=== PATIENT | male | born 1965 | race Caucasian/White ===

== ENCOUNTER 2023-02-13 12:37 | Emergency (ER) | payer MEDICARE, MEDICAID, SELFPAY ==
[2023-02-13 12:44] VITALS: BP 130/78; PULSE 89; RESP 18; TEMP 36.4; O2SAT 89; BMI 35.9
[2023-02-13 12:59] VITALS: O2SAT 89
[2023-02-13 13:00] VITALS: PULSE 82
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
[2023-02-13] MEDS: CEPHALEXIN 500 MG CAPSULE PO (14:22)
--- NOTE | 2023-02-13 14:25 | PC.NURSE ---
Pt taking self to [facility]. 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
--- NOTE | 2023-02-13 14:32 | PC.NURSE ---
Called and gave report to Bart Campbell [employer] [facility] Dave
== END 2023-02-13 14:33 | disposition short-term general hospital (02) ==
PROVIDERS: Emergency Provider Emergency Medicine; PCP Nurse Practitioner Family
DX: T20.00XA Burn of unspecified degree of head, face, and neck, unspecified site, initial encounter (principal); L03.211 Cellulitis of face; Z99.81 Dependence on supplemental oxygen; X08.8XXA Exposure to other specified smoke, fire and flames, initial encounter; F17.210 Nicotine dependence, cigarettes, uncomplicated; Z79.899 Other long term (current) drug therapy
CPT/HCPCS: 99283

== ENCOUNTER 2023-10-20 13:17 | Outpatient (OUT) | payer OTHER, SELFPAY ==
--- NOTE | 2023-10-20 14:21 | PM.CN ---
Consult Note: HPI Data of Consult Patient: new to practice Consult date: 10/20/23 Requesting Physician: Sasha Greene MD Primary Care Provider: SHAREE CRESPO Consult Narrative Reason for consult: low back, bilateral hip pain Narrative: 58yom who presents for evaluation. Longstanding low back and bilateral hip pain >5 years. Has previously undergone lumbar RFAs yearly, which have provided significant relief of >50% for >6 months. Last completed in 2021. Had to change pain clinics because previous doctor left practice. Has continued in > 6 week course of provider directed home exercises, with minimal benefit. Imaging shows facet arthropathy in lower lumbar spine. Uses gabapentin and mobic, which provide some relief. Denies adverse med side effects. cc:: CC: Sasha Greene MD Review of Systems ROS Status of ROS 10 or more systems reviewed and unremarkable except as noted in history and below [facility] Medical History On home O2 ?Z99.81 - Dependence on supplemental oxygen (ICD-10) COPD (chronic obstructive pulmonary disease) ?J44.9 - Chronic obstructive pulmonary disease, unspecified (ICD-10) Social History Smoking status: Current every day smoker Meds Home Medications and Allergies Home Medications Medication Instructions Recorded Confirmed Type albuterol sulfate 2.5 mg/3 mL 2.5 mg inhalation Q8H 02/13/23 02/13/23 History (0.083 %) solution for nebulization fluticasone fur. 100 mcg-umeclid 1 inh inhalation Q24H 02/13/23 02/13/23 History 62.5 mcg-vilant 25 mcg inhalat.powder (Trelegy Ellipta) gabapentin 800 mg tablet 800 mg PO TID 02/13/23 02/13/23 History hydrochlorothiazide 25 mg tablet 25 mg PO QDAY 02/13/23 02/13/23 History lisinopril 10 mg tablet 10 mg PO QDAY 02/13/23 02/13/23 History meloxicam 15 mg tablet 15 mg PO QDAY 02/13/23 02/13/23 History Allergies Allergy/AdvReac Type Severity Reaction Status Date / Time No Known Drug Allergies Allergy Verified 02/13/23 12:43 Exam Narrative Exam Narrative: Psych-alert and oriented x 3. Attentive and appropriate, constitutionally normal, displays normal mood and affect per situation.? There are no obvious deficits in memory, reasoning, or intellect.? Skin-no obvious rashes, bruising, erythema noted to the patient's area of pain. Extremities- extremities are warm with minimal edema and palpable pulses. Lumbar-no significant tenderness to palpation noted in the lumbar spine and paraspinal musculature.? Pain is elicited with extension, and lateral rotation of the lumbar spine. Range of motion is slightly diminished with these motions due to pain. Facet loading maneuvers are positive bilaterally and do appear to be concordant with the patient's normal complaints of pain.? Coordination remains intact.? Gait remains non-antalgic. Assessment and Plan Assessment and Plan (1) Lumbar spondylosis: Plan 58yom who presents for evaluation. Failed conservative measures, as noted. Given symptoms and imaging, coupled with previous relief, prudent to repeat bilateral L4-5, L5-S1 radiofrequency ablation under fluoroscopic guidance. He is in agreement. Discussed that will likely need to update lumbar MRI at some point in the future. Meds reviewed, no changes at this time. Follow up after procedure.
== END 2023-10-20 13:18 | disposition home or self-care (01) ==
PROVIDERS: PCP Nurse Practitioner Family; Visit Provider Anesthesiology
DX: M47.816 Spondylosis without myelopathy or radiculopathy, lumbar region (principal); F17.210 Nicotine dependence, cigarettes, uncomplicated; J43.2 Centrilobular emphysema; R91.8 Other nonspecific abnormal finding of lung field; I70.90 Unspecified atherosclerosis; K76.0 Fatty (change of) liver, not elsewhere classified; M48.56XA Collapsed vertebra, not elsewhere classified, lumbar region, initial encounter for fracture
CPT/HCPCS: 71271; G0463

== ENCOUNTER 2023-10-20 15:15 | Outpatient (OUT) | payer OTHER, SELFPAY ==
--- NOTE | 2023-10-20 15:19 | CT_ITS ---
[address] [address] Patient Name: TOM DUARTE MRN: [id number]:[id number] date: 1965 Sex: M Assigned Patient Location: CT Current Patient Location: Accession/Order Number: [id number] Exam Date: 10/20/2023 15:32 Report Date: 10/21/2023 09:23 At the request of: NON-STAFF PHYSICIAN Procedure: CT lung screening low-dose EXAM: CT lung screening low-dose HISTORY: Cigarette/nicotine dependence F17.210 ; technologist notes state lung cancer screening, shortness of breath, COPD and current smoker. COMPARISON: CT lung screen dated 11/12/[address] chest dated 07/18/2022. TECHNIQUE: Routine low-dose CT lung screen without intravenous contrast. FINDINGS: Cardiovascular: Stable mild multivessel coronary calcifications. Stable moderate atheromatous calcifications thoracic aorta and mild atheromatous calcification abdominal aorta. Stable moderately severe atheromatous calcification origin of the left subclavian artery. Stable mild atheromatous calcification splenic artery. Lungs: Severe paraseptal and centrilobular emphysema. There is moderate peribronchial thickening consistent with acute and/or chronic bronchitis. Stable moderate biapical pleural parenchymal scarring. Stable chronic right middle lobe and lingular atelectasis. Nodules: Stable 0.3 cm noncalcified nodule right upper chest (series 3 image 29). New 0.4 cm noncalcified nodule right upper chest (series 3 image 47). Stable 0.7 cm noncalcified pleural-based nodular density posterior lateral right upper chest (series 3 image 51). New 0.4 cm noncalcified pleural-based nodule posterior right mid chest (series 3 image 66). New 0.3 cm noncalcified nodule lateral left upper chest (series 3 image 33). There is a calcified granuloma within the left mid chest. Lymphadenopathy: There are no pathologically enlarged axillary, mediastinal or hilar lymph nodes. Other: The trachea, esophagus and thyroid gland are unremarkable. Upper abdomen: The liver is fatty infiltrated. Osseous: The bony structures are osteopenic. There is a stable partially imaged compression fracture of the L1 vertebral body. CT/CT lung screening low-dose IMPRESSION: Severe paraseptal and centrilobular emphysema with moderate peribronchial thickening consistent with acute and/or chronic bronchitis. Stable moderate biapical pleural parenchymal scarring and stable chronic right middle lobe and lingular atelectasis. Noncalcified nodules within the chest ranging in size from 0.3 cm to 0.7 cm. There are 3 new noncalcified nodules ranging in size from 0.3 cm to 0.4 cm. There are no pathologically enlarged lymph nodes. Stable mild multivessel coronary calcifications. Stable atherosclerotic disease as otherwise described in the body the report. The liver is fatty infiltrated. Stable partially imaged compression fracture of the L1 vertebral body. Lung rads score 3. A low-dose CT examination of the chest in 6 months is recommended. Electronically authenticated by: FOREIGN COSTA Date: 10/21/2023 09:23
== END 2023-10-20 15:16 | disposition home or self-care (01) ==
LOC: CT 15:15
PROVIDERS: PCP Nurse Practitioner Family
DX: F17.210 Nicotine dependence, cigarettes, uncomplicated (principal); J43.2 Centrilobular emphysema; R91.8 Other nonspecific abnormal finding of lung field; I70.90 Unspecified atherosclerosis; K76.0 Fatty (change of) liver, not elsewhere classified; M48.56XA Collapsed vertebra, not elsewhere classified, lumbar region, initial encounter for fracture
CPT/HCPCS: 71271

== ENCOUNTER 2023-10-21 12:59 | Outpatient (OUT) | payer OTHER, SELFPAY ==
--- NOTE | 2023-10-21 09:00 | RT_ITS ---
[facility] Test Date: 2023-10-21 Pat Name: TOM UDARTE Department: Room: - Gender: Male Payroll Officer: Erin Solorio RRT : 1965 Requested By: [id number] Order Number: [id number] Reading MD: Javier Robles Interpretive Statements Pulmonary function testing was completed according to ATS criteria. Findings were not considered accurate and reproducible as maneuvers did not meet ATS standards. Both pre- and post-bronchodilator values utilized for spirometry. Spirometry (based on pre-bronchodilator values): -FEV1/FVC: Reduced @ 52% -FEV1: Severely reduced @ 48% -FVC: Reduced @ 70% -There is no significant bronchodilator response. Lung volumes by plethysmography (based on pre-bronchodilator values): -RV: Increased @ 235% -TLC: Increased @ 127% Diffusion capacity: -Unable to complete testing. Hb 16.3g/dL. Flow-volume loop: -Severe obstructive pattern Impressions: -Spirometry shows severe obstruction. There is no bronchodilator response. An elevated RV and TLC suggest air trapping and hyperinflation respectively. Diffusion capacity unable to be completed by patient. Overall study suggestive of COPD/emphysema. Clinical correlation required. Electronically Signed On 10-22-2023 16:56:21 EST by Javier Robles
[2023-10-21 13:17] LABS: Hemoglobin 16.3 g/dL (14.0-18.0)
[2023-10-21 14:20] VITALS: PULSE 88; RESP 24; O2SAT 90
[2023-10-21] MEDS: ALBUTEROL SULFATE 2.5 MG/3 ML VIAL NEB IH (14:20)
== END 2023-10-21 13:00 | disposition home or self-care (01) ==
LOC: CARD 12:59
PROVIDERS: PCP Nurse Practitioner Family; Visit Provider Nurse Practitioner Family
DX: J44.9 Chronic obstructive pulmonary disease, unspecified (principal)
CPT/HCPCS: 36415; 85018; 94060; 94726; 94729

== ENCOUNTER 2023-11-12 08:33 | Outpatient (OUT) | payer OTHER, SELFPAY ==
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
[2023-11-12 09:03] LABS: Basophils Absolute Auto 0.1 10^3/uL (0.0-0.1); Basophils Percent Auto 0.7 % (0.2-2.0); Eosinophils Absolute Auto 0.5 10^3/uL (0.0-0.7); Eosinophils Percent Auto 4.3 % (0.9-7.0); Hematocrit 49.8 % (42.0-54.0); Hemoglobin 16.5 g/dL (14.0-18.0); Immature Granulocytes Abs Auto 0.09 10^3/uL (0.00-0.03); Immature Granulocytes Pct Auto 0.8 % (0.0-0.5); Lymphocytes Absolute Auto 2.1 10^3/uL (1.2-3.8); Lymphocytes Percent Auto 19.1 % (20.5-60.0); Mean Corpuscular HGB Conc 33.1 g/dL (29.9-35.2); Mean Corpuscular Hemoglobin 31.4 pg (25.9-34.0); Mean Corpuscular Volume 94.9 fL (80.0-94.0); Mean Platelet Volume 11.3 fL (9.5-13.5); Monocytes Absolute Auto 0.8 10^3/uL (0.3-0.8); Monocytes Percent Auto 6.9 % (1.7-12.0); Neutrophils Absolute Auto 7.4 10^3/uL (1.4-6.5); Neutrophils Percent Auto 68.2 % (43.0-75.0); Platelet Count 186 10^3/uL (150-450); Red Blood Count 5.25 10^6/uL (4.70-6.10); Red Cell Distribution Width 13.2 % (11.0-15.0); White Blood Count 10.8 10^3/uL (4.0-11.0)
[2023-11-12 09:45] LABS: Estimated Average Glucose 114 mg/dL; Glycohemoglobin A1C 5.6 % (4.5-6.2)
[2023-11-12 11:21] LABS: Alanine Aminotransferase 45 U/L (16-63); Albumin Globulin Ratio 0.9; Albumin Level 3.3 g/dL (3.4-5.0); Alkaline Phosphatase 98 U/L (46-116); Anion Gap 9.9; Aspartate Amino Transferase 20 U/L (15-37); BUN Creatinine Ratio 16.8; Bilirubin Total 0.9 mg/dL (0.2-1.0); Calcium 8.9 mg/dL (8.5-10.1); Carbon Dioxide 31.3 mmol/L (21.0-32.0); Chloride 102 mmol/L (98-107); Chol HDL Ratio 5.3; Cholesterol 175 mg/dL (<=200); Estimated GFR (African America >60 (>=60); Estimated GFR (Non-African Ame >60 (>=60); Globulin 3.7 g/dL; Glucose 111 mg/dL (74-106); HDL Cholesterol 33 mg/dL (40-60); Potassium 4.2 mmol/L (3.5-5.1); Sodium 139 mmol/L (136-145); Thyroid Stimulating Hormone 1.617 uIU/mL (0.358-3.740); Triglycerides 169 mg/dL (<=150); Uric Acid 8.4 mg/dL (3.5-7.2); VLDL CHOLESTEROL 33.8 mg/dL
[2023-11-12 11:25] LABS: Prostate Specific Antigen Scrn 0.58 ng/mL (<=4.00)
== END 2023-11-12 08:34 | disposition home or self-care (01) ==
LOC: LAB 08:36
PROVIDERS: PCP Nurse Practitioner Family; Visit Provider Nurse Practitioner Family
DX: J44.9 Chronic obstructive pulmonary disease, unspecified (principal)
CPT/HCPCS: 36415; 80053; 80061; 83036; 83525; 84436; 84443; 84481; 84550; 85025; G0103

== ENCOUNTER 2023-12-08 06:53 | Day surgery (SDC) | payer OTHER, SELFPAY ==
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
[2023-12-08 07:17] VITALS: BP 139/73; PULSE 98; RESP 16; TEMP 36.7; O2SAT 91
[2023-12-08 07:53] VITALS: PULSE 89; RESP 22; O2SAT 93
[2023-12-08] MEDS: LIDOCAINE HCL 2% 400 MG/20 ML MDV 15 ML INJ (07:58)
[2023-12-08] MEDS: BUPIVACAINE HCL 0.25% PF 25 MG/10 ML VIAL 4 ML INJ (07:58)
[2023-12-08] MEDS: TRIAMCINOLONE ACETONIDE 40 MG/ML VIAL 80 MG INJ (07:59)
[2023-12-08 08:02] VITALS: PULSE 88; RESP 20; O2SAT 95
--- NOTE | 2023-12-08 08:07 | P.ON_ITS ---
Date of procedure: 12/08/23 Pre-op diagnosis: Lumbar spondylosis Post-op diagnosis: same as pre-op Procedure: Procedure: Bilateral L4-5, L5-S1 radiofrequency ablation Medications: Bupivacaine 0.25% 6cc, lidocaine 2% 5cc, kenalog 80mg The patient was seen and examined in the preoperative holding area.? The site was marked.? Written informed consent was obtained and placed on the chart.? The patient was brought to the medical procedure unit and placed in the prone position.? A timeout was completed verifying correct patient, procedure, positioning, and special requirements.? The skin overlying the target points, the designated medial branch, were prepped and draped in the usual sterile fashion.? The target point was achieved with a 20-gauge 15 cm with a 10 mm curved active tip radiofrequency cannula under direct fluoroscopic visualization.? The needle was inserted at level L4 on the right side. Needle tip position was confirmed with lateral fluoroscopic position.? Motor stimulation was carried out at 2 Hz up to 5 volts with the absence of extremity activity.? This was repeated at level L5, S1 on right side.?? Sensory stimulation was carried out.? Concordant pain was realized at the above- mentioned sites.? Then radiofrequency lesioning was carried out times 90 seconds at 80 degrees times 2 lesions at each level.? The radiofrequency probe was removed prior to cannula removal.? The above-mentioned injectate was placed in 1 mL increments.? The needle was removed. The same procedure, with the same steps, was then completed on the left side at the same levels. Insertion sites were covered.? The patient was taken to the postoperative recovery area and monitored for an appropriate length of time before being found suitable for discharge in the company of a responsible adult. Anesthesia: Local Surgeon: Sasha Greene Pathology: none sent Condition: stable Disposition: no change
[2023-12-08 08:10] VITALS: BP 102/60
--- NOTE | 2023-12-08 08:16 | PC.NURSE ---
O2 at 3L upon return to room and patient at 93%. Advised putting on O2 as soon as he returns [place], [place].
== END 2023-12-08 08:16 | disposition home or self-care (01) ==
PROVIDERS: PCP Nurse Practitioner Family; Visit Provider Anesthesiology
DX: M47.816 Spondylosis without myelopathy or radiculopathy, lumbar region (principal)
CPT/HCPCS: 64635; 64636

== ENCOUNTER 2023-12-23 16:19 | Outpatient (OUT) | payer OTHER, SELFPAY | END 2023-12-23 16:20 | disposition home or self-care (01) | LOC: WC 16:19 | PROVIDERS: PCP Nurse Practitioner Family; Visit Provider Podiatrist Foot & Ankle Surgery | DX: I87.333 Chronic venous hypertension (idiopathic) with ulcer and inflammation of bilateral lower extremity (principal); L97.818 Non-pressure chronic ulcer of other part of right lower leg with other specified severity; L97.828 Non-pressure chronic ulcer of other part of left lower leg with other specified severity; R60.9 Edema, unspecified | CPT/HCPCS: A6213; G0463 ==

== ENCOUNTER 2024-01-08 12:54 | Outpatient (OUT) | payer OTHER, SELFPAY ==
--- NOTE | 2024-01-08 13:52 | P.CN_ITS ---
Consult Note: HPI Data of Consult Patient: known to practice within the last 3 years Consult date: 10/20/23 Requesting Physician: Frances Cartagena NP Primary Care Provider: SHAREE CRESPO Consult Narrative Reason for consult: low back, bilateral hip pain Narrative: 58yom who presents for evaluation. Longstanding low back and bilateral hip pain >5 years. Has previously undergone lumbar RFAs yearly, which have provided significant relief of >50% for >6 months. Last completed in 2021. Had to change pain clinics because previous doctor left practice. Has continued in > 6 week course of provider directed home exercises, with minimal benefit. Imaging shows facet arthropathy in lower lumbar spine. Uses gabapentin and mobic, which provide some relief. Denies adverse med side effects. Repeat RFA of bilateral L4-5 L5=S1 facets providing 60-70% improvement ongoing at this time, noticing he can walk twice as far as he had prior to repeat RFA. cc:: CC: Frances Cartagena NP Review of Systems ROS Status of ROS 10 or more systems reviewed and unremark able except as noted in history and below Musculoskeletal Reports: back pain and joint pain PFSH PFSH Medical History (Updated 01/08/24 @ 13:55 by Frances Cartagena NP) Osteoarthritis ?M19.90 - Unspecified osteoarthritis, unspecified site (ICD-10) Numbness and tingling ?R20.0 - Anesthesia of skin (ICD-10) ?R20.2 - Paresthesia of skin (ICD-10) Wears dentures ?Z97.2 - Presence of dental prosthetic device (complete) (partial) (ICD-10) Obesity (BMI 35.0-39.9 without comorbidity) ?E66.9 - Obesity, unspecified (ICD-10) Current smoker ?F17.200 - Nicotine dependence, unspecified, uncomplicated (ICD-10) Breathlessness lying flat ?R06.01 - Orthopnea (ICD-10) High blood cholesterol level ?E78.00 - Pure hypercholesterolemia, unspecified (ICD-10) High blood pressure ?I10 - Essential (primary) hypertension (ICD-10) On home O2 ?Z99.81 - Dependence on supplemental oxygen (ICD-10) COPD (chronic obstructive pulmonary disease) ?J44.9 - Chronic obstructive pulmonary disease, unspecified (ICD-10) Surgical History History of surgery on arm ?Z98.890 - Other specified postprocedural states (ICD-10) History of tonsillectomy and adenoidectomy ?Z90.89 - Acquired absence of other organs (ICD-10) Social History Smoking status: Current every day smoker Meds Home Medications and Allergies Home Medications ?Medication ?Instructions ?Recorded ?Confirmed ?Type albuterol sulfate 2.5 mg/3 mL 2.5 mg inhalation Q8H 02/13/23 12/08/23 History (0.083 %) solution for nebulization fluticasone fur. 100 mcg-umeclid 1 inh inhalation Q24H 02/13/23 12/08/23 History 62.5 mcg-vilant 25 mcg inhalat.powder (Trelegy Ellipta) gabapentin 800 mg tablet 800 mg PO TID 02/13/23 12/08/23 History hydrochlorothiazide 25 mg tablet 25 mg PO QDAY 02/13/23 12/08/23 History lisinopril 10 mg tablet 10 mg PO QDAY 02/13/23 12/08/23 History meloxicam 15 mg tablet 15 mg PO QDAY 02/13/23 12/08/23 History rosuvastatin 10 mg tablet 10 mg PO DAILY 10/20/23 12/08/23 History Allergies Allergy/AdvReac Type Severity Reaction Status Date / Time No Known Drug Allergies Allergy Verified 12/08/23 07:15 Exam Narrative Exam Narrative: Psych-alert and oriented x 3. Attentive and appropriate, constitutionally normal, displays normal mood and affect per situation.? There are no obvious deficits in memory, reasoning, or intellect.? Skin-no obvious rashes, bruising, erythema noted to the patient's area of pain. Extremities- extremities are warm with minimal edema and palpable pulses. hips- bilateral hips increased pain with internal and external log roll left greater than right, tenderness over left GTB Lumbar-no significant tenderness to palpation noted in the lumbar spine and paraspinal musculature.? mild pain is elicited with extension, and lateral rotation of the lumbar spine. Range of motion is slightly diminished with these motions due to pain. Facet loading maneuvers are mildly positive bilaterally and do appear to be concordant with the patient's normal complaints of pain.? Coordination remains intact.? Gait remains non-antalgic. Constitutional Documenting provider has reviewed patient's vital signs: yes Common normals: no apparent distress, oriented x3, healthy appearing, alert and well nourished General appearance: cooperative HENMT Common normals: normocephalic, hearing grossly normal bilaterally and moist oral mucous membranes Head and scalp: normocephalic Eye Common normals: PERRL Pupil: PERRL Neck & C-Spine Common normals: full ROM General: normal visual inspection Chest Common normals: inspection of chest normal Respiratory Common normals: normal respiratory effort, no retractions and no use of accessory muscles Neuro Common normals: oriented x3, CN's II-XII intact bilaterally, moves all extremities, no focal motor deficits, no sensory deficits noted and deep tendon reflexes 2+ bilaterally Sensorium/orientation: alert Motor exam: strength 5/5 throughout and no movement abnormalities noted Psych Common normals: mental status grossly normal, thought process normal, co operative, affect normal, speech normal and activity/motor behavior normal Speech: normal speech Thought process: normal thought process Results Additional Findings Additional findings: If on a controlled substance or opioids, I have checked an [place] report on this patient and there are no aberrancies noted in the prescribing history.??If on a controlled substance or opioid a drug screen was completed and reviewed within the last year, and if there has not been a drug screen completed we ordered one today to monitor higher risk, state monitored pain medication use. As part of providing excellent, safe, comprehensive care, the following was completed at our patient's visit: 1. A medication reconciliation and review to ensure accurate knowledge of current/active medications, including asking our patients to inform us about any [id number] medications or herbal remedies/nutritional supplements/alternative remedies. 2. A review to specifically ensure our patients have had annual screening for screening for depression, screening for tobacco use, and screening for unhealthy alcohol use. For concerning screenings had a discussion with the patient, provided patient education, and recommended follow-up with primary care provider when appropriate. If patient noted with a risk of falling, they received education on strength, gait, and balance training to prevent future risk of falling. Assessment and Plan Assessment and Plan (1) Lumbar spondylosis: (2) Bilateral primary osteoarthritis of hip: (3) Lumbar stenosis with neurogenic claudication: (4) Greater trochanteric bursitis of left hip: Plan update bilateral hip xray, prior imaging of left hip shows mild left hip OA no imaging available of right hip bilateral hip injection under fluoroscopy with Dr Greene continue medications as tolerated f/u after injections
== END 2024-01-08 12:55 | disposition home or self-care (01) ==
LOC: PM 12:54
PROVIDERS: PCP Nurse Practitioner Family; Visit Provider Nurse Practitioner
DX: M47.816 Spondylosis without myelopathy or radiculopathy, lumbar region (principal); M16.0 Bilateral primary osteoarthritis of hip; M48.062 Spinal stenosis, lumbar region with neurogenic claudication; M70.62 Trochanteric bursitis, left hip
CPT/HCPCS: G0463

== ENCOUNTER 2024-01-12 15:49 | Outpatient (OUT) | payer OTHER, SELFPAY | END 2024-01-12 15:50 | disposition home or self-care (01) | LOC: WC 15:49 | PROVIDERS: PCP Nurse Practitioner Family; Visit Provider Physician Assistant | DX: I87.331 Chronic venous hypertension (idiopathic) with ulcer and inflammation of right lower extremity (principal); L97.818 Non-pressure chronic ulcer of other part of right lower leg with other specified severity | CPT/HCPCS: A6213; G0463 ==

== ENCOUNTER 2024-02-02 15:22 | Outpatient (OUT) | payer OTHER, SELFPAY | END 2024-02-02 15:23 | disposition home or self-care (01) | LOC: WC 15:22 | PROVIDERS: PCP Nurse Practitioner Family; Visit Provider Physician Assistant | DX: I87.331 Chronic venous hypertension (idiopathic) with ulcer and inflammation of right lower extremity (principal); L97.818 Non-pressure chronic ulcer of other part of right lower leg with other specified severity | CPT/HCPCS: G0463 ==

== ENCOUNTER 2024-02-19 12:54 | Outpatient (OUT) | payer OTHER, SELFPAY ==
--- NOTE | 2024-02-19 13:08 | VEIN_ITS ---
Patient Name: TOM DUARTE MR#: [id number] : 1965 Exam Date: 02/19/2024 Ordering Doctor: DESTINY MARCOS RADIOLOGY REPORT PROCEDURE: [facility]ACILITY EST [facility] - OFFICE VISIT INITIAL COMPARISON: None. PROGRESS NOTES: [age] year old male who presents with a 4 month history of dilated discolored veins, leg pain, swelling, burning pain, throbbing, stinging (8/10 pain). The patient's left leg symptoms are worse than the right. There has been a progression of symptoms since that time. This increases with prolonged leg dependency. The patient describes an improvement with rest, elevation, support stockings, and medication. The patient denies any signs and symptoms to suggest arterial ischemia. The patient describes a family history of diabetes, hypertension, COPD.The patient has drinking and smoking history of current cigarette smoker; no alcohol consumption. Patient has a past medical history significant for COPD, lower extremity neuropathy. The patient denies a history of deep venous thrombus or pulmonary embolus. See separate history and physical for medication list. No prior treatment for varicose or spider veins. Current use of compression stockings. After review of nurse notes, history and physical exam I discussed at length the pathophysiology of venous hypertension and possible treatments, therapies and strategies available. We discussed at length the importance of elevating the lower extremities above the level of the heart, increased physical activity and compression stocking use. Ultrasound venous reflux study performed today was discussed at length with the patient. The report demonstrates abnormally dilated and incompetent right great saphenous, right small saphenous, left great saphenous, and left small saphenous veins. Several abnormally dilated incompetent executive assistant to president veins within distal lower extremities and regions of skin wounds. Multiple abnormally dilated incompetent branch saphenous varicosities bilaterally. PHYSICAL EXAM: The right leg demonstrates several varicosities, scattered spider veins, multiple ulceration, marked edema, moderate skin discoloration. The left leg demonstrates several varicosities, scattered spider veins, multiple ulceration, moderate edema, mild skin discoloration. Both thighs, legs and feet were symmetrically warm to the touch. Good posterior tibial and dorsalis pedis pulses were present bilaterally. VEIN/ Facility EST Comprehensive IMPRESSION: 1. Bilateral lower extremity venous insufficiency 2. Bilateral lower extremity varicose veins 3. Marked right, moderate left lower extremity subcutaneous edema 4. No known flow significant arterial disease 5. CEAP: C6, EP, AP, MI PLAN: 1. Continued use of compression stockings 2. Elevated legs and increased physical activity symptomatic relief 3. Endovenous laser ablation of right great saphenous, left great saphenous, right executive assistant to president veins, left executive assistant to president veins, right small saphenous, and left small saphenous veins. 4. Microfoam chemical ablation of remaining incompetent branch saphenous varicosities bilaterally. Nurse notes, history and physical were reviewed and confirmed, see attached forms. The nurse was present throughout the physical exam and consultation Dictated by: Sandro Braxton M.D. on 02/19/2024 at 15:16 Approved by: Sandro Braxton M.D. on 02/19/2024 at 16:12
--- NOTE | 2024-02-19 13:08 | VEIN_ITS ---
Patient Name: TOM DUARTE MR#: [id number] : 1965 Exam Date: 02/19/2024 Ordering Doctor: DESTINY MARCOS RADIOLOGY REPORT PROCEDURE: VC EXT VENOUS REFLUX ISAIAH LMTD COMPARISON: None. INDICATIONS: R09.89 TECHNIQUE: Duplex imaging of the lower extremity to assess the deep and superficial venous system for the presence of deep or superficial venous incompetence and to document the location and severity of disease. The study includes evaluation of the great saphenous vein (GSV), anterior accessory saphenous vein (AASV) and small saphenous vein (SSV). Patient scanned in reverse Trendelenburg and standing. FINDINGS: RIGHT LOWER EXTREMITY: Saphenofemoral Junction Reflux: Yes 7.7mm 1.9 sec GSV: Diam (mm) Reflux/ Time (sec) Proximal Thigh 5.9 Yes 1.9 Mid Thigh 4.6 No Distal Thigh 4.1 Yes 1.8 Prox Calf 3.9 Yes 1.3 Mid Calf 2.9 Yes 0.6 Saphenopopliteal Junction Reflux: 5.5mm Yes 1.2 SSV: Proximal Calf 5.5 Yes 2.2 Mid Calf 5.1 Yes 1.4 AASV: Not present Proximal Thigh Mid Thigh Distal Thigh Thrombi: No acute or chronic thrombus visualized Compressibility: Normal Flow: Normal Preforator: Dist/med calf 4.4mm with 1.0s reflux. Patent varicose vein dist/lat calf 2.8mm with 0.7s reflux. Tech Note: Incompetent SSV and GSV. Patent varicose vein dist/med calf. 4.1mm with 1.0s reflux. Patent varicose vein medial knee 4.4mm with 1.2s reflux. LEFT LOWER EXTREMITY: Saphenofemoral Junction Reflux: Yes 9.3 mm 2.0 sec GSV: Diam (mm) Reflux/Time (sec) Proximal Thigh 6.3 Yes 1.5 Mid Thigh 4.9 Yes 1.0 Distal Thigh 4.6 No Prox Calf 3.4 No Mid Calf 2.6 No Saphenopopliteal Junction Relux: 5.5 mm Yes 1.2 SSV: Proximal Calf 5.8 Yes 0.9 Mid Calf 5.2 Yes 1.0 AASV: Not present Proximal Thigh Mid Thigh Distal Thigh Thrombi: No acute or chronic thrombus visualized Compressibility: Normal Flow: Normal R D Internship: Dist/med calf 5.0mm with 1.2s reflux. Dist/ant calf 4.3mm with 1.3s reflux. Tech Note: Incompetent GSV and SSV. Patent varicose vein dist/med calf 5.1mm with 1.0s reflux. Patent varicose vein mid/med thigh 5.3mm with 1.2s reflux. CONCLUSION: 1. Abnormally dilated and incompetent bilateral great saphenous veins and bilateral small saphenous veins. 2. Several abnormally dilated and incompetent broadcast checker veins within the distal lower extremity bilaterally underlying the nonhealing skin wounds. Dictated by: Sandro Braxton M.D. on 02/19/2024 at 14:55 Approved by: Sandro Braxton M.D. on 02/19/2024 at 15:16
--- NOTE | 2024-02-19 13:08 | VEIN_ITS ---
[facility] [place] [id number] Patient Name: TOM DUARTE MRN: [id number] date: 1965 Sex: M Assigned Patient Location: Current Patient Location: Accession/Order Number: [id number] Exam Date: 02/19/2024 13:08 Report Date: 02/23/2024 07:33 At the request of: DESTINY SUAREZ Procedure: VC SEGMENTAL PRESSURES EXAM: VC SEGMENTAL PRESSURES HISTORY: R09.89 COMPARISON: None. FINDINGS: Segmental pressures presented as follows (right, left) in mmHg. Brachial: 156, 106 Upper thigh: 109, 127 Lower thigh: 87, 81 Calf: 97, 88 DPA: 84, 75 SPRING FITTER: 70, 96 1st Toe: 103, 94 SULTANA: 0.54, 0.62 TBI: 0.66, 0.60 The ABIs are abnormal suggesting moderate arterial disease bilaterally The TBI's are abnormal suggesting moderate arterial disease bilaterally PVR waveforms: Right leg: Thigh: Moderate peripheral arterial disease Above knee: Moderate peripheral arterial disease Below knee: Moderate peripheral arterial disease Right ankle: Moderate peripheral arterial disease Left leg: Thigh: Moderate peripheral arterial disease Above knee: Moderate peripheral arterial disease Below knee: Moderate peripheral arterial disease Right ankle: Moderate peripheral arterial disease VEIN/VC SEGMENTAL PRESSURES IMPRESSION: ABIs, TBI's and PVR waveforms consistent with diffuse bilateral moderate peripheral arterial disease Electronically authenticated by: JACOB BAILEY Date: 02/23/2024 07:33
== END 2024-02-19 12:55 | disposition home or self-care (01) ==
PROVIDERS: PCP Nurse Practitioner Family; Visit Provider Physician Assistant
DX: R09.89 Other specified symptoms and signs involving the circulatory and respiratory systems (principal); I83.813 Varicose veins of bilateral lower extremities with pain
CPT/HCPCS: 93923; 93970; G0463

== ENCOUNTER 2024-07-12 13:44 | Outpatient (OUT) | payer OTHER, SELFPAY ==
--- OUTSIDE RECORDS SUMMARY | 2024-07-12 13:57 | XMS_ITS | CCD ---
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 for visit Narrative Specialty Diagnoses / Procedures Referred By Contac t Referred To Contact Diagnoses Other intervertebral disc degeneration, lumbar region LUMBAR DISC DEGENERATION Procedures MO NJX DX/THER SBST INTRLMNR CRV/THRC W/IMG GDN EPIDURAL STEROID INJECTION - T12-L1 Godwin Dickey MD [address] [place] [address] [employer] [address] [place] [address] Referral ID Status Reason Start Date Expiration Date Visits Re quested Visits Authorized [id number] 1 1 [employer] Phone: Discharge Instructions * Instructions* Natalie Townsend [...] your surgery. 8. Call the office at [phone] to schedule an appointment in 2 weeks. [...] Mankoski Pain Scale provided to you at [facility]. 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 Advance Directives and Living Will Power of Search Engine Marketing Manager Latest Code Status on File Code Status [...] Documents on File Type Date Recorded Patient [employer] Expl anation ACP-Advance Directive ACP-Power of Search Engine Marketing Manager Latest Code Status on File Code Status [...] Code 10/26/2019 1:21 PM 10/26/2019 5:26 PM Advance Directive Response Recorded Date/ Time Advance Directives No September 26, 2017 11:29am Assessments Diagnosis Lumbosacral spondylosis without myelopathy Family History No Family History Records FoundUnknown Family Member Name Dates Details Family history of hypertensi on: Mother, Sister(V17.49, Z82.49) Status:Active Relationship Condition Age at Onset Recorded Date/T ava father Unknown Diabetes mellitus Unknown Hypertension Unknown Not Specified Diabetes mellitus Unknown brother Malignant neoplasm Unknown sister Malignant neoplasm Unknown Summary Purpose Chief Complaint and Reason for Visit Chief Complaint Ref by Graciela Crespo for COPD Reason for Visit 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 COPD, severe Multiple pulmonary nodules determined by computed tomography of lung Nicotine dependence, cigarettes, uncomplicated Additional Source Comments Reason for Visit (unrecogniz ed section and content) Status Reason Specialty Diagnoses / Procedures Referre d By Contact Referred To Contact Diagnoses Chronic sacroiliac joint pain BILATERAL SI JOINT Procedures MO INJECT SI JOINT ARTHRGRPHY&/ANES/STERO ID W/IMAGE SACROILIAC JOINT INJECTION Godwin iDckey MD [address] [place] [address] [employer] Status Reason Specialty Diagnoses / Procedures Re ferred By Contact Referred To Contact Diagnoses Spondylosis without myelopathy or radiculopathy, lumbar region Spondylosis without myelopathy or radiculopathy, lumbosacral region LUMBAR SPONDYLOSIS LUMBOCSACRAL SPONDYLOSIS Procedures MO RADIOFREQUENCY NEUROTOMY LUMBAR OR SACRAL, W IMAGE GUIDANCE, SINGLE MO RADIOFREQ NEUROTOMY LUMBAR OR SACRAL, W IMAGE GUIDE,EA ADDL LEVEL LUMBAR RFA--L3, L4, L5 Godwin Dickey MD [address] [place] [address] [employer] Status Reason Specialty Diagnoses / Procedures Referre d By Contact Referred To Contact Diagnoses DDD (degenerative disc disease), lumbar LUMBAR DD Procedures MO NJX DX/THER SBST INTRLMNR LMBR/SAC W/IMG GDN EPIDURAL STEROID [id number] Godwin Dickey MD [address] [place] [address] [facility] Reason Comments Facial Burn From [place] Scheduled Active and Recently Administ ered Medications [...] dexamethasone (DECADRON) injection (CANCELED) PRN, Starting on e 08/07/21 at 1440, Intra-op 1440 (Given - Provid er: Godwin Dickey MD) fentaNYL (SUBLIMAZE) injection (CANCELED) PRN, Starting on Tu08/07/21 at 1445, Intra-op 1445 (Given - Provid [...] 1241 (New Bag - Prov ider: Joanie Marie, [place])1348 (Stopped - Provider: Pat Angeles RN) PRN [...] strip), Right Eye, ONCE, 1 dose, On Tita 6/1/23 at 1800, 1 mg = 1 strip 1958 (Given - Provid er: Baljidner Ivey RN) tetracaine (TETRAVISC) 0.5 % ophthalmic solution 1 drop (COMPLETED) 1 drop, Right Eye, ONCE, 1 dose, On Tita 02/13/23 at 1800 1957 (Given - Provid er: Baljinder Ivey RN - Comment: Given by Dr. Fischer) Care Teams (unrecognized sec tion and content) Clinical Nursing Director Relationship Specialty Start Date End Date Willam Coughlin DO [address] [place], [place] [id number] PCP - General Family Medicine 11/28/16 Clinical Nursing Director Relationship Specialty Start Date End Date CedWillam DO [address] [place] [address] PCP - General Family Medicine 11/28/16 Clinical Nursing Director Relationship Specialty Start Date End Date Willam Coughlin DO [address] [place] [address] PCP - General Family Medicine 11/28/16 Team Status: Active Member Role Status Dates SHANTELL Hernandez Primary Care Provider Active Team Status: Inactive Member Role Status Dates Michaela Landis APRN ACNP-BC Attending Provider Active Start: January 05, 2024 End: January 05, 2024 SHANTELL Hernandez Primary Care Provider Active Start: January 05, 2024 End: January 05, 2024 (unrecognized sect ion and content) No Status Records FoundNo Status Records FoundNo Status Records FoundNo Status Records FoundNo Status Records FoundNo Status Records FoundNo Status Records FoundNo Status Records Found INFORMATION SOURCE (unrecogn ized section and content) DATE CREATED AUTHOR 11/01/2021 [employer] DATE CREATED AUTHOR AUTHOR'S ORGANIZ ATION 12/02/2021 [facility] DATE CREATED AUTHOR AUTHOR'S ORGANIZ ATION 02/06/2022 [facility] DATE CREATED AUTHOR AUTHOR'S ORGANIZ ATION 01/10/2023 [facility] [place] [facility] DATE CREATED AUTHOR AUTHOR'S ORGANIZ ATION 02/22/2023 [facility] DATE CREATED AUTHOR AUTHOR'S ORGANIZ ATION 08/01/2023 [facility] DATE CREATED AUTHOR AUTHOR'S ORGANIZ ATION 10/30/2023 [facility] DATE CREATED AUTHOR AUTHOR'S ORGANIZ ATION 01/20/2024 [facility] Ordered Prescriptions (unrec ognized section and content) Prescription Sig Dispensed Refills Start Date End Da te bacitracin 500 UNIT/GM ointment Apply topically 2 times daily. 28 g 3 02/13/2023 02/23/2023 Goals (unrecognized section and content) Goals may be documented in a n alternate section FOR RECORDS PERTAINING TO PATIENTS WHO ARE [...] BE BASED ON THE PRIMARY CLINICAL RECORDS. [employer] [facility]. provides no warranty or guarantee of the accuracy or completeness of information in this document.
--- NOTE | 2024-07-12 15:37 | PM.CN ---
Consult Note: HPI Data of Consult Patient: known to practice within the last 3 years Consult date: 07/12/24 Requesting Physician: Sasha Greene MD Primary Care Provider: Jacoby Mars MD Consult Narrative Reason for consult: leg pain Narrative: 59yom who presents for assessment. states that leg pain is getting worse, though believes this is more so from vascular claudication. states low back still feels good after rfa >6 months ago. uses mobic and gabapentin. denies adverse med side effects. cc:: CC: Sasha Greene MD Review of Systems ROS Status of ROS 10 or more systems reviewed and unremarkable except as noted in history and below [facility] Medical History (Updated 01/08/24 @ 13:55 by Frances Cartagena NP) Osteoarthritis ?M19.90 - Unspecified osteoarthritis, unspecified site (ICD-10) Numbness and tingling ?R20.0 - Anesthesia of skin (ICD-10) ?R20.2 - Paresthesia of skin (ICD-10) Wears dentures ?Z97.2 - Presence of dental prosthetic device (complete) (partial) (ICD-10) Obesity (BMI 35.0-39.9 without comorbidity) ?E66.9 - Obesity, unspecified (ICD-10) Current smoker ?F17.200 - Nicotine dependence, unspecified, uncomplicated (ICD-10) Breathlessness lying flat ?R06.01 - Orthopnea (ICD-10) High blood cholesterol level ?E78.00 - Pure hypercholesterolemia, unspecified (ICD-10) High blood pressure ?I10 - Essential (primary) hypertension (ICD-10) On home O2 ?Z99.81 - Dependence on supplemental oxygen (ICD-10) COPD (chronic obstructive pulmonary disease) ?J44.9 - Chronic obstructive pulmonary disease, unspecified (ICD-10) Surgical History History of surgery on arm ?Z98.890 - Other specified postprocedural states (ICD-10) History of tonsillectomy and adenoidectomy ?Z90.89 - Acquired absence of other organs (ICD-10) Social History Smoking status: Current every day smoker Meds Home Medications and Allergies Home Medications ?Medication ?Instructions ?Recorded ?Confirmed ?Type albuterol sulfate 2.5 mg/3 mL 2.5 mg inhalation Q8H 02/13/23 12/08/23 History (0.083 %) solution for nebulization fluticasone fur. 100 mcg-umeclid 1 inh inhalation Q24H 02/13/23 12/08/23 History 62.5 mcg-vilant 25 mcg inhalat.powder (Trelegy Ellipta) gabapentin 800 mg tablet 800 mg PO TID 02/13/23 12/08/23 History hydrochlorothiazide 25 mg tablet 25 mg PO QDAY 02/13/23 12/08/23 History lisinopril 10 mg tablet 10 mg PO QDAY 02/13/23 12/08/23 History meloxicam 15 mg tablet 15 mg PO QDAY 02/13/23 12/08/23 History rosuvastatin 10 mg tablet 10 mg PO DAILY 10/20/23 12/08/23 History gabapentin 800 mg tablet 800 mg PO TID #90 tabs 07/12/24 Rx meloxicam 15 mg tablet 15 mg PO DAILY #30 tabs 07/12/24 Rx Allergies Allergy/AdvReac Type Severity Reaction Status Date / Time No Known Drug Allergies Allergy Verified 12/08/23 07:15 Exam Narrative Exam Narrative: Psych-alert and oriented x 3. Attentive and appropriate, constitutionally normal, displays normal mood and affect per situation.? There are no obvious deficits in memory, reasoning, or intellect.? Skin-no obvious rashes, bruising, erythema noted to the patient's area of pain. Extremities- extremities are warm with minimal edema and palpable pulses. Lumbar-no significant tenderness to palpation noted in the lumbar spine and paraspinal musculature.? Pain is elicited with extension, and lateral rotation of the lumbar spine. Range of motion is slightly diminished with these motions due to pain. Coordination remains intact.? Gait remains non-antalgic. Assessment and Plan Assessment and Plan (1) Lumbar stenosis with neurogenic claudication: (2) Lumbar spondylosis: Plan 59yom who presents for assessment. failed conservative measures. discussed that we could continue his gabapentin and mobic, as his low back continues to feel good. states that procedure cost prevents him from further vascular interventions, as he is on fixed income. follow up in 6 months.
== END 2024-07-12 13:45 | disposition home or self-care (01) ==
PROVIDERS: PCP Radiology Diagnostic Radiology; Visit Provider Anesthesiology
DX: M48.062 Spinal stenosis, lumbar region with neurogenic claudication (principal); M47.816 Spondylosis without myelopathy or radiculopathy, lumbar region
CPT/HCPCS: G0463

== ENCOUNTER 2025-02-09 11:10 | Outpatient (OUT) | payer OTHER, SELFPAY ==
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
--- NOTE | 2025-02-09 11:41 | PM.CN ---
Consult Note: HPI Data of Consult Patient: known to practice within the last 3 years Requesting Physician: Frances Cartagena NP Primary Care Provider: Jacoby Mars MD Consult Narrative Reason for consult: low back pain Narrative: Trent Fernandez a 59 year old male presents for evaluation of chronic low back and BLE pain. since last visit has been stable on gabapentin 800mg TID and mobic 15mg daily with benefit without side effects. denies falls/injury. cannot afford additional treatments. pain today 3/10 increasing with standing, walking, activity, lifting. cc:: CC: Frances Cartagena NP Review of Systems ROS Status of ROS 10 or more systems reviewed and unremarkable except as noted in history and below [facility] Medical History (Updated 01/08/24 @ 13:55 by Frances Cartagena NP) Osteoarthritis ?M19.90 - Unspecified osteoarthritis, unspecified site (ICD-10) Numbness and tingling ?R20.0 - Anesthesia of skin (ICD-10) ?R20.2 - Paresthesia of skin (ICD-10) Wears dentures ?Z97.2 - Presence of dental prosthetic device (complete) (partial) (ICD-10) Obesity (BMI 35.0-39.9 without comorbidity) ?E66.9 - Obesity, unspecified (ICD-10) Current smoker ?F17.200 - Nicotine dependence, unspecified, uncomplicated (ICD-10) Breathlessness lying flat ?R06.01 - Orthopnea (ICD-10) High blood cholesterol level ?E78.00 - Pure hypercholesterolemia, unspecified (ICD-10) High blood pressure ?I10 - Essential (primary) hypertension (ICD-10) On home O2 ?Z99.81 - Dependence on supplemental oxygen (ICD-10) COPD (chronic obstructive pulmonary disease) ?J44.9 - Chronic obstructive pulmonary disease, unspecified (ICD-10) Surgical History History of surgery on arm ?Z98.890 - Other specified postprocedural states (ICD-10) History of tonsillectomy and adenoidectomy ?Z90.89 - Acquired absence of other organs (ICD-10) Social History Smoking status: Current every day smoker Meds Home Medications and Allergies Home Medications ?Medication ?Instructions ?Recorded ?Confirmed ?Type albuterol sulfate 2.5 mg/3 mL 2.5 mg inhalation Q8H 02/13/23 12/08/23 History (0.083 %) solution for nebulization fluticasone fur. 100 mcg-umeclid 1 inh inhalation Q24H 02/13/23 12/08/23 History 62.5 mcg-vilant 25 mcg inhalat.powder (Trelegy Ellipta) gabapentin 800 mg tablet 800 mg PO TID 02/13/23 12/08/23 History hydrochlorothiazide 25 mg tablet 25 mg PO QDAY 02/13/23 12/08/23 History lisinopril 10 mg tablet 10 mg PO QDAY 02/13/23 12/08/23 History meloxicam 15 mg tablet 15 mg PO QDAY 02/13/23 12/08/23 History rosuvastatin 10 mg tablet 10 mg PO DAILY 10/20/23 12/08/23 History gabapentin 800 mg tablet 800 mg PO TID #90 tabs 07/12/24 Rx meloxicam 15 mg tablet 15 mg PO DAILY #30 tabs 07/12/24 Rx gabapentin 800 mg tablet 800 mg PO TID #90 tabs 02/09/25 Rx Allergies Allergy/AdvReac Type Severity Reaction Status Date / Time No Known Drug Allergies Allergy Verified 12/08/23 07:15 Exam Constitutional Documenting provider has reviewed patient's vital signs: yes Common normals: no apparent distress, oriented x3, healthy appearing, alert and well nourished General appearance: cooperative HENMT Common normals: normocephalic, hearing grossly normal bilaterally and moist oral mucous membranes Head and scalp: normocephalic Eye Common normals: PERRL Pupil: PERRL Neck & C-Spine Common normals: full ROM General: normal visual inspection Chest Common normals: inspection of chest normal Respiratory Common normals: normal respiratory effort, no retractions and no use of accessory muscles Back & Pelvis Lumbar spine/lower back: pain with ROM, lumbar spinal tenderness and straight leg raise negative bilaterally Sacroiliac joints: SI joint(s) abnormal Other: bilateral sij positive naa (patricks), gaenslens, thigh thrust, compression test increased pain in low back and BLE with standing walking, improves with forward flexion Extremity Common normals: normal to inspection and full ROM Right lower extremity: hip joint Left lower extremity: hip joint Other: increased pain with internal and external hip rotation Neuro Common normals: oriented x3 Sensorium/orientation: alert Psych Common normals: mental status grossly normal, thought process normal, cooperative, affect normal, speech normal and activity/motor behavior normal Speech: normal speech Thought process: normal thought process Results Additional Findings Additional findings: If on a controlled substance or opioids, I have checked an [place]AR[place] report on this patient and there are no aberrancies noted in the prescribing history.??If on a controlled substance or opioid a drug screen was completed and reviewed within the last year, and if there has not been a drug screen completed we ordered one today to monitor higher risk, state monitored pain medication use. As part of providing excellent, safe, comprehensive care, the following was completed at our patient's visit: 1. A medication reconciliation and review to ensure accurate knowledge of current/active medications, including asking our patients to inform us about any [id number] medications or herbal remedies/nutritional supplements/alternative remedies. 2. A review to specifically ensure our patients have had annual screening for screening for depression, screening for tobacco use, and screening for unhealthy alcohol use. For concerning screenings had a discussion with the patient, provided patient education, and recommended follow-up with primary care provider when appropriate. If patient noted with a risk of falling, they received education on strength, gait, and balance training to prevent future risk of falling. Portions of this note may have been carried over from the previous visit and updated as appropriate. Please note this office utilizes paper charting in addition to the electronic medical record. A list of current medications, vitals, and PMH is available there as the clinical staff outside of myself do not have access to [employer] charting during the clinic day operations. As part of providing quality comprehensive care the current medications, vitals, and PMH were reviewed in the paper chart. Assessment and Plan Assessment and Plan (1) Lumbar stenosis with neurogenic claudication: (2) Lumbar spondylosis: (3) Bilateral primary osteoarthritis of hip: Plan continue current medications f/u 6 months, sooner if needed
== END 2025-02-09 11:11 | disposition home or self-care (01) ==
PROVIDERS: PCP Radiology Diagnostic Radiology; Visit Provider Nurse Practitioner
DX: M48.062 Spinal stenosis, lumbar region with neurogenic claudication (principal); M47.816 Spondylosis without myelopathy or radiculopathy, lumbar region; M16.0 Bilateral primary osteoarthritis of hip
CPT/HCPCS: G0463

== ENCOUNTER 2025-06-28 12:57 | Outpatient (OUT) | payer OTHER, SELFPAY ==
--- NOTE | 2025-06-28 13:01 | CT_ITS ---
The [address] [address] Patient Name: TOM DUARTE MRN: [id number] date: 1965 Sex: M Assigned Patient Location: CT Current Patient Location: CT Accession/Order Number: [id number] Exam Date: 06/28/2025 13:13 Report Date: 06/28/2025 14:15 At the request of: NON-STAFF PHYSICIAN MD Procedure: CT lung screening low-dose CT CHEST WITHOUT CONTRAST, LOW DOSE SCREENING: CLINICAL DATA: A 60-year old current smoker, smoking for 44 pack-years. COMPARISON: CT chest 10/20/2023 TECHNIQUE: Noncontrast axial CT scan images of the chest were obtained under the low dose screening CT protocol. Coronal and sagittal reconstructed images were also submitted. FINDINGS: Mediastinum : Suboptimal evaluation due to low-dose technique. Thoracic aorta appears normal in caliber. Pulmonary trunk appears nondilated. No pericardial effusion. No lymphadenopathy. The esophagus is grossly unremarkable. Lungs: No focal consolidation, pneumothorax or pleural effusion. Trachea and distal airways appear patent. Diffuse bronchial wall thickening. Emphysema. Bibasilar atelectasis/scarring. There is associated bronchiectasis. Calcified granulomas. No suspicious noncalcified pulmonary nodule or mass. Upper abdomen: No acute findings. Bony thorax and chest wall: Soft tissues surrounding the chest wall demonstrate no acute findings. Osseous structures demonstrate degenerative change. CT/CT lung screening low-dose IMPRESSION: NO SUSPICIOUS PULMONARY NODULE OR MASS. LUNG - RADS Version 1.0 Assessment: Category 1, Negative (No nodules and definitely benign nodules). Management: Continue annual lung screening with LDCT in 12 months. Impression dictated by: Jan Austin Jr., D.O. 06/28/2025 2:15 PM Dictation Location: [place] [address] Electronically authenticated by: [id number] Y Date: 06/28/2025 14:15
--- OUTSIDE RECORDS SUMMARY | 2025-06-28 13:01 | XMS_ITS | CCD ---
Author Organization [facility] Care Team Providers Care 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 Name Role Phone Willam Coughlin Primary Care Provider Unknown, Referring Provider Unavailable Unav ailable Willam Coughlin DO Primary Care Provider [phone] BAHSHEA WeinerT M Admitting Unavailable GODWIN DICKEY M Attending Unavailable WILLAM COUGHLIN Primary Care Unavailable SHEA DICKEYT M Admitting Unavailable BAHSHEA WeinerT M Attending Unavailable WILLAM COUGHLIN Primary Care Unavailable SHEA DICKEYT M Admitting Unavailable SHEA DICKEYT M Attending Unavailable WILLAM COUGHLIN Primary Care Unavailable GRACIELA CRESPO Primary Care Unavailable GRACIELA CRESPO Admitting Unavailable MISC, DR MCMANUS Attending Unavailable MISC, DR MCMANUS Consulting Unavailable MISC, DR MCMANUS Attending Unavailable MISC, DR MCMANUS Admitting Unavailable THAYER, DR JACOB Antonio Consulting Unavailable GRACIELA CRESPO [...] Unavailable Jc BAKER, Sasha Monroy Attending Unavailable Cherie HALL SUPERVISOR-C, Graciela Waite Primary Care Provider Boby Michaela WALDROP Attending Provider Allergies Allergy Classification Reported Allergen(s) Allergy Type Date of Onset Reaction(s) Facility (2 sources) varenicline Drug Allergy 07-19-2024 [facility] Medications Current Medications Medication Drug Class(es) Dates Sig (Normalized) Sig (Original) Acetaminophen (6 sources) ACETAMINOPHEN PO Take by mouth as needed. OTC 0 Suspended ACETAMINOPHEN PO Take by mouth as needed. OTC 0 Active 120 actuat albuterol 0.1 mg/actuat / ipratropium bromide 0.02 mg/actuat inhalation spray (16 sources) Anticholinergic, beta2-Adrenergic Agonist Start: 07-19-2024 End: 05-02-2025 take 1 puff(s) by inhalation four times daily Ipratropium-Albuterol 20-100 mcg/actuation mist Active 1 PUFF INHALATION Four times daily 3 May 02, 2025 1:27pm Complies with drug therapy Start: 05-28-2018 take 20-100 ug by in halation every six hours albuterol-ipratropium (COMBIVENT RESPIMAT) 20-100 MCG/ACT AERS inhaler Inhale 1 puff into the lungs every 6 hours 3 Inhaler 3 05/28/2018 Active Start: 09-30-2017 End: 07-19-2024 take 1 puff(s) by inhalation three times daily Ipratropium-Albuterol 20-100 mcg/actuation mist Discontinued 2 PUFF INHALATION Three times daily July 19, 2024 3:33pm July 19, 2024 3:34pm Start: 09-30-2017 Ipratropium-Al buterol (Combivent Respimat) 0 [...] infusion Start: 07-13-2019 lactated ringe rs infusion Blwamwsufhw-Dbznjgixg-Ysljtg er (9 sources) Anticholinergic, Corticosteroid, beta2-Adrenergic Agonist Start: 05-02-2025 Ourcxjrjdje-Bihymlbvl-Ahryyc er (Trelegy Ellipta) 100-62.5-25 mcg blister with device Active 1 INH INHALATION Daily May 02, 2025 1:27pm Complies with drug therapy Start: 01-17-2025 End: 05-02-2025 Ezbraqpqsos-Labjordao-Pslewn er (Trelegy Ellipta) 100-62.5-25 mcg blister with device Discontinued 1 INH INHALATION Daily January 17, 2025 9:52am May 02, 2025 1:28pm Start: 07-19-2024 End: 01-17-2025 Uxcjeiolvtq-Dtryrpswp-Lgzxhy er (Trelegy Ellipta) 100-62.5-25 mcg blister with device Discontinued 1 INH INHALATION Daily July 19, 2024 3:32pm January 17, 2025 9:52am Start: 07-19-2024 Fluticasone-Um eclidin-Vilanter (Trelegy Ellipta) 100-62.5-25 mcg blister with device Active 1 INH INHALATION Daily July 19, 2024 2:32pm Start: 01-26-2024 End: 07-19-2024 Dnfnnjselrc-Dvjxeonaq-Zmaubi er (Trelegy Ellipta) 100-62.5-25 mcg blister with device Discontinued 1 INH INHALATION Daily January 26, 2024 9:35am July 19, 2024 3:33pm Start: 01-26-2024 End: 07-19-2024 Zciufoqzvpo-Fmmoeofjz-Fpjunx er (Trelegy Ellipta) 100-62.5-25 mcg blister with device Discontinued 1 INH INHALATION Daily January 26, 2024 8:35am July 19, 2024 2:33pm Start: 12-29-2023 End: 01-26-2024 Pobohocrknt-Bbnhnbpsf-Sukpcq er (Trelegy Ellipta) 100-62.5-25 mcg blister with device Discontinued 1 INH INHALATION Daily December 29, 2023 12:00am January 26, 2024 9:36am Start: 12-29-2023 End: 01-26-2024 Nxflinnmkyy-Leavgflev-Bcrtxr er (Trelegy Ellipta) 100-62.5-25 mcg blister with device Discontinued 1 INH INHALATION Daily December 28, 2023 11:00pm January 26, 2024 8:36am Start: 12-29-2023 Fluticasone-Um eclidin-Vilanter (Trelegy Ellipta) 100-62.5-25 mcg blister with device Active 1 INH INHALATION Daily December 29, 2023 12:00am Kgpjfqnziyz-Buflczczg-Vzmznd (TRELEGY ELLIPTA IN) (4 sources) take 1 puff(s) by inhalation once daily Wbhwrluustv-Xhknzkyun-Tgocjf (TRELEGY ELLIPTA IN) Inhale 1 puff into the lungs daily 0 Suspended take 1 puff(s) by in halation once daily Bvulgvzhlca-Umjwoqage-Flzjsx (TRELEGY EL LIPTA IN) Inhale 1 puff into the lungs daily 0 Active gabapentin 800 mg oral tablet (13 sources) Anti-epileptic Agent Start: 12-29-2023 take 1 tablet by mouth three times daily Gabapentin 800 mg tablet Active 800 MG PO Three times daily December 29, 2023 3:33pm Complies with drug therapy Start: 09-30-2017 End: 12-29-2023 take 1 tablet by mouth once daily at bedtime Gabapentin 800 tablet Discontinued 800 MG PO Daily at bedtime [...] hours as needed for Pain 0 Active meloxicam 15 mg oral tablet (10 sources) Nonsteroidal Anti-inflammatory Drug Start: 12-29-19 take 1 mg by mouth once daily Meloxicam 15 mg tablet Active MG PO Daily December 29, 2023 12:00am Complies with drug therapy Start: 12-29-2023 take 1 mg by mouth once daily Meloxicam Active MG PO Daily December 28, 2023 11:00pm take 1 tablet by rolan th once daily meloxicam (MOBIC) 15 MG tablet [...] 12:00am 3 liters [facility] DME Oxygen unit (2 sources) Start: 07-19-2024 Oxygen unit Ac tive 0 .Route July 19, 2024 3:13pm 3 liters Medical Service [employer]. DME he also has a POC Start: 01-05-2024 End: 07-19-2024 Oxygen unit Discontinued 0 . Route January 05, 2024 12:00am July 19, 2024 3:14pm 3 liters [employer]. DME pregabalin [...] Sig (Original) albuterol 0.83 mg/ml inhalation solution (8 sources) beta2-Adrenergic Agonist Start: 01-05-2024 End: 07-19-2024 take 2.5 mg by inhalation every six hours Albuterol Sulfate 2.5 mg /3 mL (0.083 %) solution for nebulization Discontinued 2.5 MG INHALATION Every 6 hours July 19, 2024 3:35pm July 19, 2024 3:35pm dx: J44.9 Ventolin HFA 108 (90 Base) [...] Active glucosamine sulfate 500 mg oral tablet (3 sources) Start: 09-30-2017 End: 01-05-2024 take 1 tablet by mouth once daily Glucosamine Sulfate (Glucosamine) 500 mg Tablet Discontinued 1 TAB PO Daily September 30, 2017 1:00am January 05, 2024 2:18pm hydroCHLOROthiazide 25 mg oral tablet (10 sources) Thiazide Diuretic Start: 09-30-2017 End: 01-05-2024 take 1 tablet by mouth once daily in the morning Hydrochlorothiazide 25 tablet Discontinued 25 MG PO Every morning September 30, 2017 1:00am January 05, 2024 2:18pm hydroCHLOROthiaz andres TABS Quantity: 0 Refills: 0 Ordered: 30-Oct-2021 DO Active lisinopril 10 mg oral tablet (10 sources) Angiotensin Converting Enzyme Inhibitor Start: 12-29-2023 End: 05-02-2025 take 1 tablet by mouth once daily Lisinopril 10 mg tablet Discontinued 10 MG PO Daily December 29, 2023 12:00am May 02, 2025 1:31pm take 1 tablet by mouth once deshawn y lisinopril (PRINIVIL;ZESTRIL) 10 MG tablet Take 10 mg by mouth daily 0 Active Lisinopril 10 MG Oral Tablet Quantity: 0 Refills: 0 Ordered: 30-Oct-2021 DO Active Merced 6-Yhs-Gwz-Fish Oil (Fish Oil) 1,000 mg (120 mg-180 mg) Capsule (3 sources) Start: 09-30-2017 End: 01-05-2024 take 1 capsule by mouth once daily Merced 1-Mlh-Fkd-Fish Oil (Fish Oil) 1,000 mg (120 mg-180 mg) Capsule Discontinued 1000 MG PO Daily September 30, 2017 12:00am January 05, 2024 1:18pm Start: 09-30-2017 End: 01-05-2024 take 1 capsule by mouth once daily Merced 8-Zyi-Zuk-Fish Oil (Fish Oil) 1,000 mg (120 mg-180 mg) Capsule Discontinued 1000 MG PO Daily September 30, 2017 1:00am January 05, 2024 2:18pm rosuvastatin calcium 10 mg oral tablet (4 sources) HMG-CoA Reductase Inhibitor Start: 12-29-2023 End: 01-05-2024 take 1 tablet by mouth once daily Rosuvastatin 10 mg tablet Discontinued 10 MG PO Daily December 29, 2023 12:00am January 05, 2024 2:18pm Rosuvastatin Andrez cium 10 MG Oral Tablet Quantity: 0 Refills: 0 Ordered: 30-Oct-2021 DO Active tetracaine hydrochloride 5 mg/ml ophthalmic solution (1 source) Kelli Local Anesthetic Start: 02-13-2023 End: 02-13-2023 tetracaine (TETRAVISC) 0.5 % ophthalmic solution 1 drop varenicline 1 mg oral tablet (5 sources) Partial Cholinergic Nicotinic Agonist Start: 02-03-2024 End: 07-19-2024 take 1 tablet by mouth twice daily, then take 1 tablet by mouth once Varenicline Tartrate (Chantix Continuing ) 1 mg tablet Discontinued 1 MG PO Twice daily 112 56 February 03, 2024 12:00am July 19, 2024 3:15pm Start: 01-26-2024 End: 07-19-2024 Varenicline Tartrate 0.5 mg (11)- 1 mg (42) tablets,dose pack Discontinued 0 .ROUTE .COMPLEX January 26, 2024 9:38am July 19, 2024 3:14pm TAKE DIRECTED Start: 01-26-2024 End: 07-19-2024 Varenicline Discontinued 0 . ROUTE .COMPLEX January 26, 2024 8:38am July 19, 2024 2:14pm TAKE DIRECTED Start: 01-05-2024 End: 01-26-2024 take 1 tablet by mouth once Varenicline Tartrate (Benites tix Starting Box) 0.5 mg (11)- 1 mg (42) tablets,dose pack Discontinued 0 PO per package directions 53 January 05, 2024 12:00am January 26, 2024 9:38am PO PER PKG DIR Varenicline (Chantix Starting Box) 0.5 mg (11)- 1 mg (42) tablets,dose pack (1 source) Start: 01-05-2024 End: 01-26-2024 take 1 tablet by mouth once Varenicline (Chantix Starting Box) 0.5 mg (11)- 1 mg (42) tablets,dose pack Discontinued 0 PO per package directions January 04, 2024 11:00pm January 26, 2024 8:38am PO PER PKG DIR vitamin e 180 mg oral capsule (3 sources) Start: 09-30-2017 End: 01-05-2024 take 1 capsule by mouth once daily Vitamin E 400 unit Capsule Discontinued 400 UNIT PO Daily September 30, [...] circulatory system] Episodic Other lower respiratory disease (4 sources) Multiple nodules of lung; Translations: [Other [...] 05-24-2014 05-24-2014 Chronic Other nervous system disorders (3 sources) Neuropathy; Translations: [Idiopathic progressive neuropathy] 12-29-2023 Chronic Other non-traumatic joint disorders (3 sources) Pain in right hip joint; Translations: [Right hip pain] Onset: 01-23-2016 05-07-2016 Other screening for suspected conditions (not mental disorders or infectious disease) (1 source) Patient encounter status; Translations: [Encounter for screening for malignant neoplasm of respiratory organs] 05-02-2025 Episodic Residual codes; unclassified (3 sources) Tobacco user; Translations: [Tobacco abuse] Onset: 03-29-2014 03-29-2014 Chronic Residual codes; unclassified (1 source) Pain, unspecified; Translations: [Pain, unspecified] Onset: 10-29-2023 Episodic Residual codes; unclassified (3 sources) History of colonoscopy; Translations: [Other specified postprocedural states] 12-29-2023 Episodic Comment on above: 2018 Respiratory failure; insufficiency; arrest (adult) (8 sources) Dependence on supplemental oxygen; Translations: [Dependence [...] Spondylosis; intervertebral disc disorders; other back problems (15 sources) Chronic low back pain; Translations: [Sacroiliac joint pain] Onset: 03-29-2014 03-29-2014 Episodic Substance-related disorders (7 sources) Nicotine dependence, cigarettes, uncomplicated; Translations: [Nicotine [...] BTYon 01-02-2023 02 MODE NASAL CANNULA Normal [facility] Comment on above: Performed By: #### A BG #### [facility] [address] [place] [address] Dr. Aguila Fernandez ALLENS TEST Positive [facility] Comment on above: Performed By: #### A BG #### [facility] [address] [place] [address] Dr. Aguila Fernandez Base excess Calc (Bld) [Moles/Vol] 4.1 mmol/L Critically high -2.0-2.0 [facility] Comment on above: Performed By: #### A BG #### [facility] [address] [place] [address] Dr. Aguila Fernandez BIPAP PRESSURE [facility] Comment on above: Performed By: #### A BG #### [facility] [address] [place] [address] Dr. Aguila Fernandez CPAP [facility] Comment on above: Performed By: #### A BG #### [facility] [address] [place] [address] Dr. Aguila Fernandez FIO2 [facility] Comment on above: Performed By: #### A BG #### [facility] [address] [place] [address] Dr. Aguila Fernandez HCO3 (Bld) [Moles/Vol] 28.8 mmol/L Critically high 22.0-26 .0 [facility] Comment on above: Performed By: #### A BG #### [facility] [address] [place] [address] Dr. Aguila Fernandez LPM 3 [facility] Comment on above: Performed By: #### A BG #### [facility] [address] [place] [address] Dr. Aguila Fernandez MINUTE VOLUME Normal [facility] Comment on above: Performed By: #### A BG #### [facility] [address] [place] [address] Dr. Aguila Fernandez Oxygen (Bld) [Partial pressure] 56.9 mm[Hg] Critically low 80.0-100.0 [facility] Comment on above: Performed By: #### A BG #### [facility] [address] [address] [address] Aguila Fernandez Oxygen saturation in Blood 91.8 % Critically low 95.0-100.0 [facility] Comment on above: Performed By: #### A BG #### [facility] [address] [address] [address] Aguila Fernandez PCO2 45.4 mmHg Critically high 35.0-45.0 [facility] Comment on above: Performed By: #### A BG #### [facility] [address] [address] [address] Aguila Fernandez [facility] Comment on above: Performed By: #### A BG #### [facility] [address] [place] [address] Dr. Aguila Fernandez pH (Bld) 7.410 [pH] Normal 7.350-7.450 [facility] Comment on above: Performed By: #### A BG #### [facility] [address] [place] [address] Dr. Aguila Fernandez [facility] Comment on above: Performed By: #### A BG #### [facility] [address] [address] [address] Aguila Fernandez [facility] Comment on above: Performed By: #### A BG #### [facility] [address] [place] [address] Dr. Aguila Fernandez PUNCTURE SITE LR [facility] Comment on above: Performed By: #### A BG #### [facility] [address] [place] [address] Dr. Aguila Fernandez RATE [facility] Comment on above: Performed By: #### A BG #### [facility] [address] [place] [address] Dr. Aguila Fernandez VENT MODE [facility] Comment on above: Performed By: #### A BG #### [facility] [address] [place] [address] Dr. Aguila Fernandez [facility] Comment on above: Performed By: #### A #### [facility] [address] CHEST WO CONon [...] by: JACOB BAILEY Date: 2022-07-19 07:44 Normal [facility] FLUORO FOR SURGICAL PROCEDUR ESon 02-05-2022 FLUORO FOR SURGICAL PROCEDURES Radiology exam is complete. No Radiologist dictation. Please follow up with ordering provider. Final result Normal [facility] FLUORO FOR SURGICAL PROCEDUR ESon 12-25-2021 FLUORO FOR SURGICAL PROCEDURES Radiology exam is complete. No Radiologist dictation. Please follow up with ordering provider. Final result Normal [facility] Radiology exam is complete. No Radiologist dictation. Please follow up with ordering provider. [facility] Coding Summary.on 11-13-2021 Coding Summary. [id number]+PGhlYWQ+P C2MWIYyI71zdUDszR5 GF0zWKC6CWDBGGFNCH Y9LEL2rbHY0ZVdiD9S ybiAv LgukcZVkCG20DPj2MD F2jLtpNHaygI5xjQXf J9g8GqGaLK12lR14GK stBMFeLzX4WfPlzfqy bWFy Q0pfQtIajJVdNjy+PH RhYmxlIHdpZHRoPScx DUKvIhWndWztZA1kZi 9yZGVyLWNvbGxhcHNl OiBj r6ztTGGqKZjuGA2wqS jzP7ApgBA1ALMrx4q1 Yk25cKR+DELiQLV5gE qhBJtnu073WkSnz4rz IDM3 cJTwCMviZSY6L88gu4 U2UICqBPMhKZF7vQG4 jL0goXykzpzvP8YojO FcZoS3WNX1iOBaiL1j bGln hooauW5tPyh+Q09ESU 8MUBAFWQ6UAls1R3Fg PjwvdHI+HV63TMBrTG 52qLSzfYAfu2cwpCq6 JzEw VGXoIBV6sGlySYkci2 DgUYEcL83guNGps4R5 IGNvbGxhcHNlOyBlbX Y6dN0yEQjnfsvig7ye dzsn Bnnsu6gutd86cP26S5 2yIFfnIEVnBJV0ALPy VNWeyHeubf3foY4pDm 8+TNeso1lrx9hcvUu3 IjIw FRYpogNbwJbiLLS0v7 IlIl35K6PpwWpdm5Ko Hhq5ko57qWGdv8Z9eU D9ZCvcBIFpqU3mGIru ZnQ6 JXPmPbVakR20vTRrHH fwGs2wnNlzvFhmCV2y AGDsgxwxBAMczQ1nNT JkiVIqtYpjQP4qXMGh bjtm q147RyLkOPQ0ESIpjF BnL1NviW9jEuOdFYKa WMQuI1SejOSdODidD9 06PBgfZaB5FAWneqIr Y2Fs LKEwkKrgCxL5v2P3Fy 8Xi8PfdgtqMHF3SVhu HWFrHpCrOrXbYsW5R7 WkKxd2YJHocDgqZC5y J3Bh YBLvyzmwnocemLV0KZ XdXQYouQ93yOEoBXzg No0jx9U3e536KJBaAA GwxL64Yl9hgGrbIMUq dCBU fX8jvzxey7bitousYy JkYWWxDEw7MBt3CJZk iAyzGbWuLZI8EsA5LI I8yQVukR6vxGrdrbpj dG9w Oyc+P29ohV5qTTG8EU Z8znjnEKOpllHcJW05 UD92E8VdTxnubWRbkY U+IAMpqnZpbIbaAL9q YmFj h8ric1LiHPccB4YgGO PhMRiaJse6IIXzJLH7 nOE2zY8qRMEmLVhgf5 B8sQY0T9KmknLrna6r b2xs FFKwKWpdG89soHFqk5 Z9FEBucGJ7EVBvqXno RnWzjU89Tid+PGNvbG iul6YdPgnim9sjy1gt dGg9 IjMwJSIgdmFsaWduPS C6m1MvDk70P89tIBkk ZHRoPSIxNSUiIHZhbG iyri8tkK2aNi2+PGNv bCB3 cPI6vH0dZTMrQlC4TZ brB516UzDpxMEgGdgu i9jkj8mfdVz0DpLwLI GrahXqdCofNNY9g2Wf Lz48 V18eSZciGQTdLMUqDF SgVWJchTdlqt1pgH0t Ii8+LQ9ci3jbll89zQ 48dHI+EPGdWTI4sXgm PSdw WWYwzB7zONhxIlZ8YX FeQhLbtU67gVGrWBhk Bh2wtIkfoTgcWT3ySH Lrariig818CtGeg9jl IDEw jUDoTUycSAK5E81gd1 M7JCWbALRkSNM6hAA3 aY3dpHnpgqklgHYqpI sgdmVydGljYWwtYWxp Z246 IHRvcDsnPlBhdGllbn NrMtHpTUx0K5XvGze9 XBBddXxyFS2rgEHcOK dlOw8hjTpetSgfXI2n NTBp aagjk242KbAmu3naZH SogKHjWCwhBNL0D30a r1G3PUMtPTDjRGS8hI X2dD6jbPoksmegjLXc dDsg dmVydGljYWwtYWxpZ2 46IHRvcDsnPkJpcnRo TFLpaCQ7GG28SD54oI Xny8J8cJH5Z7WjWTPg bmct bjawiCA2TKBiARBplI 31Cn7ghIgiMh5pHJSo KVH4ATBrkRUhM1InxT 7gSkJaDZKsQTTmF7Oo eHQt UNhdE620EInsAwN7AX IvnuTzX6QeKOSxmWel WjJ3s6R5Wm7XA2R0SI 53ZZ06iJLrt6J0gDE3 J3Bh PXKzrkgkwcapmIB8PS KiASOyqY55Eq8ntUgv Uy4uUYBqHGG4TNFrrE GqJ1LoxH1dJzNmYLBd MDAw L9WroOHaIJgoP668DA fdTvJ1BPXuwzTvF5Rq LSMjlQtjYmU8r0R2Qw 4MCCf2AC86ID44gXTe c3R5 aNK5U1DlCZDilgcsub zcxRS0PXGcMWOkrT03 If0veLczLd8cUZVgTZ C8XXOdaCFbG1AjgR5o OiAj OFJyIAZgR4MrbYSbUE ccJ503KRnoSkN8APGw tnToA9YxXSKaoRshBx U6t1F4Na9QTMSsJT06 IFR5 mIT0TN89HX62A3IdWr wvdGFibGU+PHRhYmxl IHdpZHRoPScxMDAlJy LudEpyEV3lKn0fGIGb LWNv sExzvTJzPuCzr1toKI HgNFyoIY9veVtcN1Vc dIB6GAUap2d9Uo18Y5 5oX4EwfMQ+PGNvbCB3 aWR0 yR0aQaNsClG1GSkqN0 54YoTseUAtGqnrx6oo v3wlgAz9FbO6WCWmck RqkRjnMYF4u8FbMb52 Y29s IHdpZHRoPSIxNSUiIH XypOqndz6zwY6nOz2+ QJJefUU6aMF7gQ6iIh IqJsY5XEkxD019KnSd cCIv Ipoys7bjh5drlSu0Jz IwJSIgdmFsaWduPSJ0 o3JiGv59S0HwhRisz5 JxYuf8dj71aWNwa7K2 bGU9 H0LwBZZhwvjplPBifB zeMQ3wBQNjgvjqRTFe kR3eZIRyB2z9ImKoDu C3ANgjP2EqthU7OOJp cHQg NQydMOI5D18vo7A9QS OmKFVfDSK5pVR4iO2u bGlnbjogbGVmdDsgdm FwzWavLEljWMshK970 IHRv sLhyKNHoyV6yBTSqaI BiwWmsEG8aEHGkjrtj KfHQFW7FU9WSDBygX7 lMTEFSRDwvdGQ+PHRk IHN0 hMzfYWsoDLEsoE8xOW HaI7d6SkWrXkC0NPkb T6GqTZQxrxtbLh25zB 1bDqAtRmS6HNyuB4Ll bnQ6 QZPceEDyBUitKAB0E2 9zm9Y5SLJjPSJfRLB0 fDH7cN8meQflgexgjM VmdDsgdmVydGljYWwt YWxp T116OOYtwFreEjE2Ap M2FuA9WoS3C2IdExb5 TUUnvSrhAA6cvXPkKM mvJw3prZoyaHtfVU1m NTBp rvnqIKRobY7mYWDuhG ZnwJxyQM0qEGNdxwxp i404HmOtQKR9WGRdfV OtI7VruW1nPvOdUFDb MDAw H4ZovNNaZQklD027IC tzBkO2WODosrFgZ3Oc HEDvyFhzZfB0e6F7Rq 41OCBZZWFyczwvdGQ+ PHRk TBU2wJqkIAgpUQIhlI 0tAAScL0b4OfPhKjE3 LEhbS4UrZORozkhlSf 43bS4uJkCzKkO8HWfz O2Zv qgB4YXRakHJyRNwnSJ H7Y03na5G3QHVhEKIa KQG8tTE7aA5zqFkozl ogbGVmdDsgdmVydGlj YWwt KRnxY815KNWspZbpUf 5wnKN9B6OpLsx1CYEo mRukGD6rqLTnWAirDt 5piAgrvTfwKR1vNCFm bjtw VZJyyG3oKKMeaKCwbM upJV2fDUKpubsuf724 NiKfLAD1ICTdiYOvD3 RkeS0iJgCeWJCqVNRj O3Rl nPAyJLtcK732EVdjKl O3HCQtbwYvC6RcFETf vLjrTaD4o5H9Js3IoU SsOZCkSX68CA12GO94 L3Ry PjwvdGFibGU+PHRhYm xlIHdpZHRoPScxMDAl OsHioJdwTT5sPg5qSH VyLWNvbGxhcHNlOiBj b2xs IQNpPErcVG7wfGxnY7 ZyoQE6IHCab3a0Hr90 M71sF0MqaPP+PGNvbC E6iHD1xS6rMdTsLwW3 YWxp V073RqJwsRZgOytix1 jgf7hdtUt4CoGqWPZh tmHnyTgcZLC3e0VxNy 64X79dERtcJRVbGKYi MCUi TNHpgIlqmy7neR5lJh 8+VXZfbPA2lBV4pB3s IzSmHdW2TDjoE645Om UqoFMdOvjcL87gJ0Vp dXA+ SZJrBio0KGHjkNqeIG 3juJOsQNpyCl4gFHZ5 YgXbMtOaDCklN5WtMC DhypveeseseHC3EVFi MDUw iY29Qx0ouVizEg1uFA UvASQ2OWZylUQiC8Yq cG1ePaDqHHZnALGyF4 XbkAFuJBroA566EKih ZnQ7 YBFyujXuF9ZdUZWqrC ykAaL3u7H6Ao9ReQvg tNEdAL0jDvYtGUp3B8 OcKij9UPPkwOylFX3k cGFk SXgzAk3hxXdcoJdsOO 2rDYHnxgpis723HkDh s6ceQWLhvSJwHZhwJV Z9N18gh8Z2LGFdXGSq MDA7 mWK5yI5mzGpdmpeusJ VmdDsgdmVydGljYWwt XKwxC408KEVdrJqiAl FURgd0L6JiPac1FBCn dHls LN3uzHFqODuwYt4kkH thwRkxLP0cBAQhpjgh s940LoDig1opIFHzyH OhJYyjZXS7Y88xa5F9 ICMw ODSwMAW1lKU4zB7ufL lnbjogbGVmdDsgdmVy xPebENczHSpqX355LR XgvJogEw9TRwy1J1Hk Pjx0 ENQazPfsQV4omTAuSX lbVu6scAxomNyhCY3d WNSaumefd530WzYlc3 xkIDEwcHQgVGltZXM7 Y29s o0L1PVNkARXwQMI1uO O9mE8uwSgwxhzeiHZo dDsgdmVydGljYWwtYW kjI327HYEnbKjlSzHl eWVy OjwvdGQ+TF81xa98W1 LjEtsqYvx6NMGjGDN8 fWL6tW8rCZSkERmyi5 U9xVL0L4QodiSjtk0b b2xs YXBz (more content not included)... Normal [facility] Consent for Treatmenton 10-17 Consent for Treatment [id number]#1.00CD:127 Normal [facility] Consultation Noteon 11-06-19 Consultation Note Patient: [...] management physician?Dr. Dickey who he sees in [place], [place]. Patient states that he has undergone [...] All Problems HTN (hypertension) / SNOMED CT 1196361325 / Confirmed High cholesterol / SNOMED CT 09601045 / Confirmed COPD, moderate / SNOMED CT 201524314 / Confirmed Emphysema/COPD / SNOMED CT 637919733 / Confirmed Smoker / SNOMED CT 881257644 / Confirmed Added secondary to documentation in [...] and lower extremities Skin: Unremarkable Results Review [facility] Cervical MRI scan. No significant disc bulges [...] Patient is agreeable. He will follow-up after. [facility] Comment on above: Result Comment: Elec tronically Signed By: Iliana Payan PA-C\.br\Date and Time Signed: 11/06/21 12:57 EST\.br\Electronically Co-Signed By: Bonifacio BAKER, Teo Wilkins\.br\Date and Time Co-Signed: 11/06/21 13:26 EST Office/Clinic Note-Physician on 11-06-2021 Office/Clinic Note-Physician [id number]#1.00CD:127 Normal [facility] Ophthalmic Eye [place] 2021 Ophthalmic Eye Exam DOCUMENT REVIEWED BY: Eileen Vee OD PhD DOCUMENT SIGNED ELECTRONICALLY BY Eileen Vee OD PhD ON 10/31/2021 03:17:23 PM [facility] [address] [place], [address] THIS EXAM WAS COMPLETED ON: 10/30/2021 00:00:00 BY: Eileen Vee OD PhD Inna Bolton performed RYIID-Dwrs-my Exam Date: Saturday, October 30, 2021 PATIENT [...] surgery; History of Hand surgery; FAMILY HISTORY: Mother,Sister:Fami ly history of hypertension CURRENT MEDICATIONS: Combivent [...] DATE-TIME: 10/30/2021 11:27:16 AM 10/30/2021 11:27:16 AM AGING ROOM OPERATOR: juanjo geiger CONFRONTATION VF Full to count [...] due to distance I will call the [facility] [place] and inquire if they can fit the CL Eileen Vee OD PhD DOCUMENT CREATE DATE: 10/30/2021 00:00:00 BY: The Following Users Updated This Patient Encounter: Inna Bolton Received for:Eileen Borjas OD,PhD Oct 31 2021 3:17PM Eastern Standard Time Normal [facility] Radiology Outside Office Investigation Specialist yon 10-26-2021 Radiology Outside Office Copy [id number] #1.00CD:127 Normal [facility] Radiology Outside Office Investigation Specialist yon 10-23-2021 Radiology Outside Office Copy [id number]#1.00CD:127 Normal [facility] Radiology Outside Office Copy [id number]#1.00CD:127 Normal [facility] Radiology Outside Office Copy [id number]#1.00CD:127 Normal [facility] Coding Summary.on 10-22-2021 Coding Summary. CD:[id number] 7FVq2rAv+PGhlYWQ+P I8REQGsU01loRJxxS7 OG4lOWX9DVRAKUGZDM S6GAG1knRG9JCkfV9O ybiAv JrhwiCOoQK20EBw0SQ T7nHbcYAtzhM5gcOIq E1e4YkTgXJ24vD15AV rkHVKiFaI7XlZfajzy bWFy Y1kyDzNfhVRmFms+PH RhYmxlIHdpZHRoPScx PFHlLuLmsOsnNQ2uGq 9yZGVyLWNvbGxhcHNl OiBj h9fxPUSxJJhyLY3hvK qcC2VuaYE7NSSzt6q0 Sv00iDA+CTDcPZV5fZ ctIMclu340YrZzf0ka IDM3 cWPwSRzjKZV1L28bm2 I7XZYvVCQwJVT1sEV4 mS4zcBtgxqomB3RsxV EnTgX2GFA9gEZjeR4u bGln jzprsF2oYpr+Q09ESU 4ZJMKEGE0KAfe7M2Bs PjwvdHI+CO11BRQaXC 09uAMhnYZmk4xxuUi7 JzEw LMVkIED0dIslDOlng7 NrFJFlP16ckGNzv5X3 IGNvbGxhcHNlOyBlbX X3qB0qZMhfinzsb6xm dzsn Pdgxo9bzho09sE51U6 5rZOtxOQRvNXU5JEEc OOZqsZqkig8ibF1sTb 8+YRitr5kea1hguJv5 IjIw MKAtubFqwGcyNOF9r4 ZzRb55C1KhtNodj8Fh Cwl2ym47iPGvd0W6eV B3DOzeENScpA4uBVbl ZnQ6 TLVoGsOryY64yKBkIP ewRz7dtZwflEzoRN5a ZODerugpLCHnhN0pNA SxbVUngJisYY6dNBRk bjtm u161XqSlUOU3BNKmgX XlA2ZtqZ7bFtCeXHMg DYMdE8CxtHNqKCgiH2 20KZzeNqB8GWObtcJe Y2Fs CQSdvPfrUgE7o3S5Tn 8Zg0CrxkdoANS2CDrg LANmQpS4QeBiGxA6E0 BzCuy3USEtsSfqKX1l J3Bh MAPgqfpdlxsqtSR8EU BkNVXvrO94nCSsCAsy Ie2ra8V3n361QUVxSN FnnK79Jz6uyNdoMNMm dCBU mI0xjsagw8nouljdDz PrBQUlTVk7YZs5DRGh sAvdJvYcPHU8FxY6JK V4kLYkgK0weRqohqxi dG9w Oyc+V41onC0gNXG5CC S7rhsvMKQxzaVmVN29 KY12S5XwBkmegHDcaN U+VRVmtgQgaSllRU8l YmFj n8dyc5LbRQefV3UzBT CoZDcsXuv3ULHuYJT8 tNA6uS5lUUAoVMbgo7 J2sPG4J6JpheObll3z b2xs VKIxOMidZ10fjCElk7 I7CQTqmOR2WDKrcJqe VnAylI67Ool+PGNvbG zcw0AeCeaty4xpu8az dGg9 IjMwJSIgdmFsaWduPS E9u9TwIx78G38wQFci ZHRoPSIxNSUiIHZhbG beso5ksZ5xZa0+PGNv bCB3 nXW3yR3lRYElYdZ2TC pcU699BmGqjFMyTxcl a5buv2qbaLb3RrQoVG IwkeLlzEorXVO5v4Eg Lz48 N40eRYvmBCVuDYExLC XdPDPhrWaaue5teA8l Ii8+ZC1gd6iqnt83pH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
== END 2025-06-28 12:58 | disposition home or self-care (01) ==
LOC: CT 12:57
PROVIDERS: PCP Radiology Diagnostic Radiology
DX: F17.210 Nicotine dependence, cigarettes, uncomplicated (principal); Z12.2 Encounter for screening for malignant neoplasm of respiratory organs
CPT/HCPCS: 71271

== ENCOUNTER 2025-08-04 12:53 | Outpatient (OUT) | payer MEDICARE, SELFPAY ==
--- OUTSIDE RECORDS SUMMARY | 2025-08-04 12:57 | XMS_ITS | Clinical Summary ---
Author Organization [facility] Address [address] [place] [address] Care Team Providers Care Poultry Boner Name Role Phone Willam Pedersen MD Primary Care Provider [phone] Family History Medical HistoryRelationNameCommentsStrokeFatherDiabetesMotherHeart diseaseMother HypertensionMotherCancerSiblingHypertensionSiblingRelationNameStatusComments FatherDeceasedMotherAliveSibling Social History Tobacco UseTypesPacks/DayYears UsedDateSmoking Tobacco: Every DayCigarettes Smokeless Tobacco: Never Tobacco Cessation:Ready to Q uit: Not Asked; Counseling Given: Not Answered Alcohol UseStandard Drinks/WeekCommentsNever0 (1 standard drink = 0.6 oz pure alcohol)caffeine: 2-3 cups per daySex and Gender InformationValueDate Recorded Sex Assigned at BirthNot on fileLegal SooOcgz9411/27/2022 8:14 PM EDTGender IdentityNot on fileSexual OrientationNot on file Last Filed Vital Signs Vital SignReadingTime TakenCommentsBlood Vtvftfgp86/7209 12:00 PM EDT Pulse--Temperature--Respiratory Rate--Oxygen Saturation--Inhaled Oxygen Concentration--Cjmkbg305 kg (237 lb)06/06/2020 12:00 PM ZDNTtcvcj397.8 cm (5' 10 )06/06/2020 12:00 PM EDTBody Mass Index34.01006/06/2020 12:00 PM EDT Plan of Treatment Not on file Insurance * Guarantor: Trent FernandezAccount TypeRelation to PatientDate of BirthPhone Billing AddressPersonal/EsmwjrMuap1965 [address] [address] Care Teams Team MemberRelationshipSpecialtyStart DateEnd Date Willam Pedersen MD [address] [place] [phone] PCP - GeneralFamily Medicine02/07/23
--- OUTSIDE RECORDS SUMMARY | 2025-08-04 12:57 | XMS_ITS | Clinical Summary ---
Author Organization [employer] Address [id number] [address] [place] [address] Care Team Providers Care Pt Escort Name Role Phone Unavailable Primary Care Provider Unavailabl e Allergies No known active allergies Medications MedicationSigDispense QuantityRefillsLast FilledStart DateEnd DateStatus gabapentin (NEURONTIN) 600 mg tablet Take 800 mg by mouth 3 (three) times a day.Active meloxicam (MOBIC) 15 mg tablet Take 1 tablet (15 mg total) by mouth in the morning.Active hydroCHLOROthiazide (HYDRODIURIL) 25 mg tablet Take 1 tablet (25 mg total) by mouth daily.Active lisinopriL (PRINIVIL,ZESTRIL) 10 mg tablet Take 1 tablet (10 mg total) by mouth in the morning.Active pravastatin sodium (PRAVASTATIN ORAL) Take by mouth daily.Active albuterol (PROVENTIL,VENTOLIN) 2.5 mg /3 mL (0.083 %) nebulizer solution Indications:COPD, severe (CMS-HCC)INHALE 1 VIAL BY NEBULIZATION 4 TIMES A DAY NEEDED FOR WHEEZING. 375 mL ctive COMBIVENT RESPIMAT 20-100 mcg/actuation mist Indications:COPD, severe (CMS-HCC)INHALE 1 PUFF BY MOUTH NIGHTLY 4 g ctive wptdfkotllm-kektdvzoe-nuaqblif (TRELEGY ELLIPTA) 100-62.5-25 mcg blister with device Inhale 1 puff in the morning. 60 each ctive Active Problems ProblemNoted DateDiagnosed DateNocturnal yngcpgw58/03/2022COPD, cfqjzb2910/04/2021 Asbestos /20/2022Pulmonary ypkojl602Dyspnea on exertion 2Primary rhivqwsevxri72/20/2022Chronic back pain2Cigarette nicotine dependence, hipqrxvozgjmy03/20/2022 Family History Medical HistoryRelationNameCommentsDiabetesFatherHypertensionFatherMental illnessFatherStrokeFatherCOPDMotherDiabetesMotherHigh CholesterolMother HypertensionMotherRelationNameStatusCommentsFatherMother Social History Tobacco UseTypesPacks/DayYears UsedDateSmoking Tobacco: Every DaySmokeless Tobacco: Never Tobacco Cessation:Ready to Q uit: Not Asked; Counseling Given: Not Answered Alcohol UseStandard Drinks/WeekCommentsNot Currently0 (1 standard drink = 0.6 oz pure alcohol)ChildcareAnswerDate HnwqhdizIoqtqwrgiZtvkrhs70/12/2019Employment AnswerDate TojhegvlCpalviwmstAectatj63/12/2019Hunger ScreeningAnswerDate RecordedWithin the past 12 months we worried whether our food would run out before we got money to buy more.Never True12/23/2022Within the past 12 months the food we bought just didn't last and we didn't have money to get more.Never True12/23/2022Sex and Gender InformationValueDate RecordedSex Assigned at Not on fileLegal DonJprr5304/20/2015 11:47 AM EDTGender IdentityNot on fileSexual OrientationNot on file Last Filed Vital Signs Vital SignReadingTime TakenCommentsBlood Hijfimfq99/6604 1:46 PM EDT Zzkwa7919 1:46 PM TPNOwhsyrzydqn47.6 ??C (97.9 ??F)10/04/2021 12:54 PM ESTRespiratory Wyju998812/23/2022 1:42 PM EDTOxygen Pllfwxpxqf41%12/23/2022 1:42 PM EDTInhaled Oxygen Concentration--Lbfhzd623 kg (291 lb)12/23/2022 1:42 PM EDT Xfabfg937.8 cm (5' 10 )12/23/2022 1:42 PM EDTBody Mass Index41.7504 1:42 PM EDT Plan of Treatment Health MaintenanceDue DateLast DoneCommentsDepression Mceoazubj82/17/1975Tobacco Unsfwfnhx56/17/1975DTaP,Tdap and Td Vaccines (1 - Tdap)1982RSV ( or age 60+ yrs) (1 - Risk 60-74 years 1-dose series)2023dult BMI Fcaqphwos63/06/2023Influenza Ueddprb16/, 06/20/2020, 05/31/2019, Additional history existsZoster (Shingles) VaccineCompleted 10/01/2020, 06/29/2020 [employer] Devices Not on file Insurance * Guarantor: Trent Fernandez TypeRelation to PatientDate of PhoneBilling AddressPersonal/IbbwxqKkvb1965 [address] [id number] * Guarantor: Trent Fernandez TypeRelation to PatientDate of PhoneBilling AddressThird Democrat YqivokrupUool[address] [address]
--- OUTSIDE RECORDS SUMMARY | 2025-08-04 12:57 | XMS_ITS | Clinical Summary ---
Author Organization [facility] Address [address] [place] [address] Care Team Providers Care Chief Recordist Name Role Phone Unavailable Primary Care Provider Unavailabl e Social History Tobacco UseTypesPacks/DayYears UsedDateSmoking Tobacco: Never AssessedUT Safety & EnvironmentAnswerDate RecordedFear of Current or Ex-PartnerNot on file 11/06/2023Emotionally AbusedNot on file11/06/2023hysically AbusedNot on file 11/06/2023Sexually AbusedNot on file11/06/2023hysically or Sexually AbusedNot on file11/06/2023Sex and Gender InformationValueDate RecordedSex Assigned at BirthNot on fileLegal NjmKnlm1004/03/2022 8:39 AM EDTGender IdentityNot on file Sexual OrientationNot on file Plan of Treatment Not on file
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
--- OUTSIDE RECORDS SUMMARY | 2025-08-04 12:58 | XMS_ITS | Clinical Summary ---
Author Organization [facility] Address [address], [address] [place] [address] Care Team Providers Care Student Services Coordinator Name Role Phone Willam Pedersen Primary Care Provider [phone] Allergies No known active allergies Medications MedicationSigDispense QuantityRefillsLast FilledStart DateEnd DateStatus ACETAMINOPHEN PO Take by mouth as needed. OTCActive ibuprofen (ADVIL;MOTRIN) 200 MG tablet Take 200 mg by mouth every 6 hours as needed for PainActive meloxicam (MOBIC) 15 MG tablet Take 15 mg by mouth dailyActive lisinopril (PRINIVIL;ZESTRIL) 10 MG tablet Take 10 mg by mouth dailyActive hydrochlorothiazide (HYDRODIURIL) 25 MG tablet Take 25 mg by mouth dailyActive albuterol-ipratropium (COMBIVENT RESPIMAT) 20-100 MCG/ACT AERS inhaler Inhale 1 puff into the lungs every 6 hours 3 Inhaler Active pregabalin (LYRICA) 100 MG capsule Take 100 mg by mouth 2 times daily.Active gabapentin (NEURONTIN) 600 MG tablet Take 800 mg by mouth 3 times daily. Patient takes twice dailyActive Cylagvavdzs-Hoqdmggve-Nyimlj (TRELEGY ELLIPTA IN) Inhale 1 puff into the lungs dailyActive Active Problems ProblemNoted DateDiagnosed DateFacial burn, second degree, initial encounter 02/14/2023Sacroiliac joint pain07/13/2019Lumbosacral spondylosis without mxwurxitgo11/09/2016Right hip pain01/23/20163088Mfhhynolxpmn64/27/2015Chronic bronchitis with COPD (chronic obstructive pulmonary disease)06/02/2014History of rwvdxntzis92/18/2014ED (erectile dysfunction)05/24/2014Elevated blood pressure dnspawa9203/29/2014 Overview (04/12/2017): Updating deleted diagnoses Chronic low back pain03/29/2014Tobacco abuse03/29/2014ilateral hip pain 03/29/2014 Immunizations ImmunizationAdministration DatesNext DueInfluenza Vaccine, unspecified yzqnukotqma25/01/2016Influenza Virus Mosemoc6808/04/2014Pneumococcal, PPSV23, PNEUMOVAX 23, (age 2y+), SC/IM, 0.5mL11/28/2016 Family History Medical HistoryRelationNameCommentsCancerBrotherDiabetesMotherHigh Blood PressureMotherCancerPaternal GrandfatherRelationNameStatusCommentsBrotherAlive FatherAliveMaternal GrandfatherDeceasedMotherAlivePaternal GrandfatherDeceased Social History Tobacco UseTypesPacks/DayYears UsedDateSmoking Tobacco: Every DayCigarettes Smokeless Tobacco: FormerQuit: 04/01/2016 Tobacco Cessation:Ready to Q uit: No Alcohol UseStandard Drinks/WeekCommentsNo0 (1 standard drink = 0.6 oz pure alcohol)No alcohol for the past 7 years.Sex and Gender InformationValueDate RecordedSex Assigned at BirthNot on fileLegal RorUxmt9910/25/2012 4:19 PM EST Gender IdentityNot on fileSexual OrientationNot on file Last Filed Vital Signs Vital SignReadingTime TakenCommentsBlood Wjkwewfc585/9506 5:04 PM EDT Qbcen3679 5:04 PM SKIPouxvhooxlo37 ??C (98.6 ??F)02/13/2023 5:04 PM EDT Respiratory Oycm406602/13/2023 5:04 PM EDTOxygen Uvhidweouo79%02/13/2023 5:04 PM EDTInhaled Oxygen Concentration--Xozebn429.6 kg (288 lb)02/13/2023 5:04 PM EDT Iixytx631.8 cm (5' 10 )02/13/2023 5:04 PM EDTBody Mass Index41.3206 5:04 PM EDT Plan of Treatment Health MaintenanceDue DateLast DoneCommentsDepression Hqgcav5206/01/1975HIV screen 1978DTaP/Tdap/Td vaccine (1 - Tdap)06/01/19829295Useufqgoklg56/17/2008 Colorectal Cancer Trmxam3706/01/2008FIT/FOBT: Average risk2008Fecal-DNA (Cologuard): Average risk2008Sigmoidoscopy/CT vczlpgztjxex62/17/2008Lipids , 04/05/2014Pneumococcal 50+ years Vaccine (2 of 2 - PCV) , 11/28/2016Respiratory Syncytial Virus (RSV) or age 60 yrs+ (1 - Risk 60-74 years 1-dose series)2023Flu vaccine (#1) 51, 06/20/2020, 05/31/2019, Additional history existsCOVID-19 Vaccine ( - season)2025Hepatitis C bmpjkeIedglhicd15/22/2014 Prostate Specific Antigen (PSA) Screening or HbbqnygiszDuauamlbcceh82/22/2014 Pneumococcal 0-49 years WetfqgaQbrhzisswjaf97/06/2020, 11/28/2016Shingles djmvqcvEkjuumxtu56/17/2021, 06/29/2020Hepatitis A vaccineAged OutNo longer eligible based on patient's age to complete this topicHepatitis B vaccineAged OutNo longer eligible based on patient's age to complete this topicHib vaccine Aged OutNo longer eligible based on patient's age to complete this topic Meningococcal (ACWY) vaccineAged OutNo longer eligible based on patient's age to complete this topicMeningococcal B vaccineAged OutNo longer eligible based on patient's age to complete this topicPolio vaccineAged OutNo longer eligible based on patient's age to complete this topic Goals GoalPatient Goal TypeAssociated ProblemsRecent ProgressPatient-Stated?Author Quit smoking. LifestyleNot on track(08/04/2014 2:10 PM EST)Melanie Crabtree get help with hip pain LifestyleNot on track(08/04/2014 2:10 PM EST)Jannie Hackett Quit smoking. LifestyleNoMarMelanie conklin Procedures Procedure NamePriorityDate/TimeAssociated DiagnosisCommentsLIPID PANELRoutine 02/14/2015 9:25 AM EDT Dyslipidemia PSA NDAXJOFTQSyolwhp76/22/2014 8:22 AM EDT ED (erectile dysfunction) Screening PSA (prostate specific antigen) HEPATITIS PANEL, REZGGRyekldv45/22/2014 8:22 AM EDT Exposure to hepatitis C from Last 3 Months or Most Recently Relevant to Health Maintenance Results * (ABNORMAL) Lipid Panel (02/14/2015 9:25 AM EDT)ComponentValueRef RangeTest MethodAnalysis TimePerformed AtPathologist XhccagebzOskvuuaurhm476<200 mg/dL 02/14/2015 10:40 AM EDTMN LABComment: Cholesterol Guidelines: <200 Desirable 200-240 ??Borderline >240 Undesirable HDL31(L)>40 mg/dL02/14/2015 10:40 AM EDTMHPN LABComment: HDL Guidelines: <40 Undesirable 40-59 ?Borderline >59 Desirable LDL Kkkbuaulgpj894(H)0 - 130 mg/dL02/14/2015 10:40 AM EDTMN LABComment: LDL Guidelines: <100 Desirable 100-129 ?? Near to/above Desirable 130-159 ?? Borderline >159 Undesirable Direct (measured) LDL and calculated LDL are not interchangeable tests. Chol/HDL Ratio6.3(H)<506 10:40 AM EDTMHPN LABComment:Bigxzteduqydn946 <150 mg/dL02/14/2015 10:40 AM EDTMN LABComment: Triglyceride Guidelines: <150 Desirable 150-199 ??Borderline 200-499 ??High >499 Very high Based on AHA Guidelines for fasting triglyceride, June 2012. Performed at [address] [place] [address] ([phone] VLDLNOT REPORTED1 - 30 mg/dLCHILLICOTHE HOSPITAL LABSpecimen (Source) Anatomical Location / LateralityCollection Method / VolumeCollection Time Received TimeBLOOD SPECIMEN / Uzmcdcw8302/14/2015 9:25 AM EDT02/14/2015 9:26 AM EDT Narrative Authorizing ProviderResult TypeResult StatusBrett W Might SIDE SHOW ENTERTAINER - CNPCHEMISTRY ORDERABLESFinal ResultPerforming OrganizationAddressCity/State/ZIP CodePhone Number [facility] [address] [place] [address], [facility] [phone] [facility] * Psa screening (04/05/2014 8:22 AM EDT)ComponentValueRef RangeTest Method Analysis TimePerformed AtPathologist SignaturePSA1.02<4.1 ug/L04/05/2014 9:39 AM EDSHELBY BAP[facility]IST [facility]ICAL [facility]ERN LABComment: The Katharina ECLIA assay is used. ??Results obtained with different assay methods cannot be used interchangeably. Performed at [address] [place] [address] ([phone] Specimen (Source)Anatomical Location / LateralityCollection Method / Volume Collection TimeReceived TimeBLOOD SPECIMEN / Jwgrppg5904/05/2014 8:22 AM EDT 04/05/2014 8:23 AM EDT Narrative Authorizing ProviderResult TypeResult StatusBrett W Might SIDE SHOW ENTERTAINER - CNPCHEMISTRY ORDERABLESFinal ResultPerforming OrganizationAddressCity/State/ZIP CodePhone Number [facility] [address] [place], [place] [address] [phone] [facility] * Hepatitis Panel, Acute (04/05/2014 8:22 AM EDT)ComponentValueRef RangeTest MethodAnalysis TimePerformed AtPathologist SignatureHepatitis B Surface Ag AOKNBEBRFHZCG50/22/2014 10:16 PM EDTMHPN LABHepatitis C AbNONREACTIVENR 04/05/2014 10:16 PM EDTMHPN LABComment: ? The hepatitis C procedure used in our laboratory is a Chemiluminescent test specific for three recombinant HCV antigens. ??A negative anti-HCV result indicates that the antibodies to hepatitis C virus are not present at this time. Individuals with reactive anti-HCV should be considered infected and infectious until proven otherwise. ??Confirmation of all equivocal or reactive results is recommended by ordering HCV RNA by PCR. Hep B Core Ab, MwCCCFCTVFXIVDJD13/22/2014 10:16 PM EDTMHPN LABHep A IgM RJMZUWLCJBNGD43/22/2014 10:16 PM EDTMHPN LABComment:Performed at [address] [place], [place] [id number] ([phone] (Source) Anatomical Location / LateralityCollection Method / VolumeCollection Time Received TimeBLOOD SPECIMEN / Baigxhj8504/05/2014 8:22 AM EDT04/05/2014 8:23 AM EDT Narrative Authorizing ProviderResult TypeResult StatusBrett W Might SIDE SHOW ENTERTAINER - CNPIMMUNOLOGY ORDERABLESFinal ResultPerforming OrganizationAddressCity/State/ZIP CodePhone Number [facility] [address] [place] [address], [facility] [phone] [facility] from Last 3 Months or Most Recently Relevant to Health Maintenance Advance Directives * Full Code (Latest Code Status on File) Date ActivatedDate InactivatedComments02/05/2022 3:15 PM02/05/2022 7:00 PM * Full Code Date ActivatedDate InactivatedComments12/25/2021 12:36 PM12/25/2021 4:22 PM * Full Code Date ActivatedDate MvfolochjrrWlaxhypg84/23/2021 1:51 PM08/07/2021 5:34 PM * Full Code Date ActivatedDate OzkdmleozxsPlmbqogm30/15/2020 1:44 PM08/29/2020 5:54 PM * Full Code Date ActivatedDate InactivatedComments10/26/2019 1:21 10/26/2019 5:26 PM Care Teams Team MemberRelationshipSpecialtyStart DateEnd Date Willam Pedersen DO [address] [place] [address] PCP - GeneralFamily Medicine11/28/16
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
--- OUTSIDE RECORDS SUMMARY | 2025-08-04 12:58 | XMS_ITS | Clinical Summary ---
Author Organization [facility] Address [address] [place] [place] [address] Phone Care Team Providers Care Wool Shearer Name Role Phone Unavailable Primary Care Provider Unavailabl e Social History Tobacco UseTypesPacks/DayYears UsedDateSmoking Tobacco: Never AssessedSex and Gender InformationValueDate RecordedSex Assigned at BirthNot on fileLegal Sex Male08/10/2022 2:14 AM ESTGender IdentityNot on fileSexual OrientationNot on file Plan of Treatment Not on file
--- NOTE | 2025-08-04 13:15 | P.CN_ITS ---
Consult Note: HPI Data of Consult Patient: known to practice within the last 3 years Requesting Physician: Frances Cartagena NP Primary Care Provider: Jacoby Mars MD Consult Narrative Reason for consult: low back pain Narrative: Trent Fernandez a 59 year old male presents for evaluation of chronic low back and bilateral hip pain. since last visit has been stable on gabapentin 800mg TID and mobic 15mg daily with benefit without side effects. denies falls/injury. cannot afford additional treatments at the hospital. pain today 2/10 increasing up to 5/10 with standing, walking, activity, lifting. cc:: CC: Frances Cartagena NP Review of Systems ROS Musculoskeletal Reports: back pain and joint pain [facility] Medical History (Updated 08/04/25 @ 13:16 by Frances Cartagena NP) Osteoarthritis ?M19.90 - Unspecified osteoarthritis, unspecified site (ICD-10) Numbness and tingling ?R20.0 - Anesthesia of skin (ICD-10) ?R20.2 - Paresthesia of skin (ICD-10) Wears dentures ?Z97.2 - Presence of dental prosthetic device (complete) (partial) (ICD-10) Obesity (BMI 35.0-39.9 without comorbidity) ?E66.9 - Obesity, unspecified (ICD-10) Current smoker ?F17.200 - Nicotine dependence, unspecified, uncomplicated (ICD-10) Breathlessness lying flat ?R06.01 - Orthopnea (ICD-10) High blood cholesterol level ?E78.00 - Pure hypercholesterolemia, unspecified (ICD-10) High blood pressure ?I10 - Essential (primary) hypertension (ICD-10) On home O2 ?Z99.81 - Dependence on supplemental oxygen (ICD-10) COPD (chronic obstructive pulmonary disease) ?J44.9 - Chronic obstructive pulmonary disease, unspecified (ICD-10) Surgical History History of surgery on arm ?Z98.890 - Other specified postprocedural states (ICD-10) History of tonsillectomy and adenoidectomy ?Z90.89 - Acquired absence of other organs (ICD-10) Social History Smoking status: Current every day smoker Meds Home Medications and Allergies Home Medications ?Medication ?Instructions ?Recorded ?Confirmed ?Type albuterol sulfate 2.5 mg/3 mL 2.5 mg inhalation Q8H 12/08/23 History (0.083 %) solution for nebulization fluticasone fur. 100 mcg-umeclid 1 inh inhalation Q24H 02/13/23 12/08/23 History 62.5 mcg-vilant 25 mcg inhalat.powder (Trelegy Ellipta) gabapentin 800 mg tablet 800 mg PO TID 02/13/2312/07 History hydrochlorothiazide 25 mg tablet 25 mg PO QDAY 3 12/08/23 History lisinopril 10 mg tablet 10 mg PO QDAY 02/13/2312/07 History meloxicam 15 mg tablet 15 mg PO QDAY 02/13/2312/07 History rosuvastatin 10 mg tablet 10 mg PO DAILY 10/20/2311/14 History gabapentin 800 mg tablet 800 mg PO TID #90 tabs 07/12 Rx meloxicam 15 mg tablet 15 mg PO DAILY #30 tabs 06/16 05/08 Rx gabapentin 800 mg tablet 800 mg PO TID #270 tabs 01/14 05/09 Rx gabapentin 800 mg tablet 800 mg PO TID #90 tabs 02/09 Rx meloxicam 15 mg tablet 15 mg PO DAILY #30 tabs 11/0 03/09 Rx Allergies Allergy/AdvReac Type Severity Reaction Status Date / Time No Known Drug Allergies Allergy Verified 12/08/23 07:15 Exam Constitutional Documenting provider has reviewed patient's vital signs: yes Common normals: no apparent distress, oriented x3 and alert General appearance: cooperative Nutritional appearance: obese [facility] Common normals: normocephalic, hearing grossly normal bilaterally and moist oral mucous membranes Head and scalp: normocephalic Eye Common normals: PERRL Pupil: PERRL Neck & C-Spine Common normals: full ROM General: normal visual inspection Chest Common normals: inspection of chest normal Respiratory Common normals: no retractions Other: on room air Back & Pelvis Lumbar spine/lower back: pain with ROM, lumbar spinal tenderness and straight leg raise negative bilaterally Sacroiliac joints: SI joints normal Other: moderate pain over bilateral GTB Extremity Common normals: normal to inspection and full ROM Right lower extremity: hip joint Left lower extremity: hip joint Other: increased pain with internal and external hip rotation Neuro Common normals: oriented x3 Sensorium/orientation: alert Psych Common normals: mental status grossly normal, thought process normal, cooperative, affect normal, speech normal and activity/motor behavior normal Speech: normal speech Thought process: normal thought process Results Additional Findings Additional findings: If on a controlled substance or opioids, I have checked an [place] report on this patient and there are no aberrancies noted in the prescribing history.??If on a controlled substance or opioid a drug screen was completed and reviewed within the last year, and if there has not been a drug screen completed we ordered one today to monitor higher risk, state monitored pain medication use. As part of providing excellent, safe, comprehensive care, the following was completed at our patient's visit: 1. A medication reconciliation and review to ensure accurate knowledge of current/active medications, including asking our patients to inform us about any [id number] medications or herbal remedies/nutritional supplements/alternative remedies. 2. A review to specifically ensure our patients have had annual screening for screening for depression, screening for tobacco use, and screening for unhealthy alcohol use. For concerning screenings had a discussion with the patient, provided patient education, and recommended follow-up with primary care provider when appropriate. If patient noted with a risk of falling, they received education on strength, gait, and balance training to prevent future risk of falling. Portions of this note may have been carried over from the previous visit and updated as appropriate. Please note this office utilizes paper charting in addition to the electronic medical record. A list of current medications, vitals, and PMH is available there as the clinical staff outside of myself do not have access to [employer] charting during the clinic day operations. As part of providing quality comprehensive care the current medications, vitals, and PMH were reviewed in the paper chart. Assessment and Plan Assessment and Plan (1) Greater trochanteric bursitis of both hips: (2) Lumbar stenosis with neurogenic claudication: (3) Lumbar spondylosis: (4) Bilateral primary osteoarthritis of hip: Plan bilateral GTB injection with Dr Greene maintain current medications f/u 6 months for medicaiton management, sooner if needed
== END 2025-08-04 12:54 | disposition home or self-care (01) ==
LOC: PM 12:53
PROVIDERS: PCP Radiology Diagnostic Radiology; Visit Provider Nurse Practitioner
DX: M70.62 Trochanteric bursitis, left hip (principal); M70.61 Trochanteric bursitis, right hip; M48.062 Spinal stenosis, lumbar region with neurogenic claudication; M47.816 Spondylosis without myelopathy or radiculopathy, lumbar region; M16.0 Bilateral primary osteoarthritis of hip
CPT/HCPCS: G0463

== ENCOUNTER 2025-08-22 13:28 | Outpatient (OUT) | payer MEDICARE, SELFPAY ==
--- OUTSIDE RECORDS SUMMARY | 2025-08-22 13:33 | XMS_ITS | CCD ---
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 Resolution Status Chronic respiratory failure with hypoxia and hypercapnia acuteCOPD (chronic obstructive pulmonary disease) with emphysemaacuteCOPD, severeacuteMultiple pulmonary nodules determined by computed tomography of lung acuteNicotine dependence, cigarettes, uncomplicatedacuteOxygen dependentMarietta [facility] Work Phone: Evaluation note* Diagnosis Onset Date Resolution Status Admit Date Chronic respiratory failure with hypoxia and hypercapnia acuteAugust 2024 1:24pmCOPD (chronic obstructive pulmonary disease) with emphysemaacuteAugust 2024 1:24pmCOPD, severeacuteAugust 2024 1:24pm Multiple pulmonary nodules determined by computed tomography of lungacuteAugust 2024 1:24pmNicotine dependence, cigarettes, uncomplicatedacuteAugust 2024 1:24pmOxygen dependentacuteAugust 2024 1:24pm [facility] Work Phone: Reason for referral (narrative)No reason for referral information availableSumma Health W[facility] Work Phone: Reason for visit Narrative* Auth/CertSpecialty Diagnoses / ProceduresReferred By ContactReferred To Contact Diagnoses Other intervertebral disc degeneration, lumbar region LUMBARR DISC DEGENERATION Procedures [place] NJX AA&/STRD TFRML EPI LUMBAR/SACRAL 1 LEVEL W[place] NJX AA&/STRD TFRML EPI LUMBAR/SACRAL EA ADDL LUMBAR [id number], L5-SI Godwin Dickey MD [address] [place] [address] [facility] Referral IDStatusReasonStart DateExpiration DateVisits RequestedVisits [id number] [facility] Work Phone: reason for visit Narrative* Auth/CertSpecialty Diagnoses / ProceduresReferred By ContactReferred To Contact Diagnoses Other intervertebral disc degeneration, lumbar region LUMBAR DISC DEGENERATION Procedures W[place] NJX DX/THER SBST INTRLMNR CRV/THRC W/IMG GDN EPIDURAL STEROID INJECTION - T12-L1 Godwin Dickey MD [address] [place] [address] [facility] [address] [place] [address] Referral IDStatusReasonStart DateExpiration DateVisits RequestedVisits [id number] [facility] Work Phone: Discharge Instructions * Instructions* Natalie [...] your surgery. 8. Call the office at [phone] to schedule an appointment in 2 weeks. [...] Mankoski Pain Scale provided to you at [facility]. Remember in order to accurately assess [...] sacroiliac joint pain BILATERAL SI JOINT Procedures WV INJECT SI JOINT ARTHRGRPHY&/ANES/STEROID W/IMAGE SACROILIAC JOINT INJECTION Godwin Dickey MD [address] [place] [address] [facility] StatusReasonSpecialtyDiagnoses / ProceduresReferred By ContactReferred To Contact Diagnoses Spondylosis without myelopathy or radiculopathy, lumbar region Spondylosis without myelopathy or radiculopathy, lumbosacral region LUMBAR SPONDYLOSIS LUMBOCSACRAL SPONDYLOSIS Procedures WV RADIOFREQUENCY NEUROTOMY LUMBAR OR SACRAL, W IMAGE GUIDANCE, SINGLE W[place] RADIOFREQ NEUROTOMY LUMBAR OR SACRAL, W IMAGE GUIDE,EA ADDL LEVEL LUMBAR RFA--L3, L4, L5 Godwin Dickey MD [address] [place] [address] [employer] StatusReasonSpecialtyDiagnoses / ProceduresReferred By ContactReferred To Contact Diagnoses DDD (degenerative disc disease), lumbar LUMBAR DD Procedures [place] NJX DX/THER SBST INTRLMNR LMBR/SAC W/IMG GDN EPIDURAL STEROID [id number] Godwin Dickey MD [address] [place] [address] [employer] ReasonCommentsFacial BurnFrom [place] Scheduled Active and Recently Administ ered Medications [...] Team MemberRelationshipSpecialtyStart DateEnd Date Willam Coughlin [address] [place] [id number] PCP - Generalmily Medicine11/28/16Team MemberRelationshipSpecialtyStart DateEnd Date Willam Coughlin 1992 [place] [address] PCP - GeneralFami Medicine11/28/16Team MemberRelationshipSpecialtyStart DateEnd Date Willam Coughlin 1992 [place] [address] PCP - GeneralFamily Medicine11/28/16 Team Status: Active [...] 02, 2025 End: May 02, 2025Hemolly Landis EPIC AMBULATORY SPECIALISTSKarly QUACH-BCAttending ProviderActiveStart: May 02, 2025 End: May 02, 2025 (unrecognized sect ion and content) No Status Records FoundNo Status Records FoundNo Status Records FoundNo Status Records FoundNo Status Records FoundNo Status Records FoundNo Status Records FoundNo Status Records Found INFORMATION SOURCE (unrecogn ized section and content) DATE CREATED AUTHOR 11/01/2021 [facility] DATE CREATED AUTHOR AUTHOR'S ORGANIZ ATION 12/02/2021 [facility] DATE CREATED AUTHOR AUTHOR'S ORGANIZ ATION 02/06/2022 [facility] DATE CREATED AUTHOR AUTHOR'S ORGANIZ ATION 01/10/2023 [facility] DATE CREATED AUTHOR AUTHOR'S ORGANIZ ATION 02/22/2023 [facility] DATE CREATED AUTHOR AUTHOR'S ORGANIZ ATION 08/01/2023 [facility] DATE CREATED AUTHOR AUTHOR'S ORGANIZ ATION 10/30/2023 [facility] DATE CREATED AUTHOR AUTHOR'S ORGANIZ ATION 07/17/2024 [facility] Ordered Prescriptions (unrec ognized section and content) PrescriptionSigDispensedRefillsStart DateEnd Date bacitracin 500 UNIT/GM ointment Apply topically 2 times daily. 28 g 306//[id number]/07/2023 Goals (unrecognized section and content) Goals may [...] BE BASED ON THE PRIMARY CLINICAL RECORDS. [employer] [facility]. provides no warranty or guarantee of the accuracy or completeness of information in this document.
--- NOTE | 2025-08-22 14:03 | PM.CN ---
Consult Note: HPI Data of Consult Patient: known to practice within the last 3 years Consult date: 08/22/25 Requesting Physician: Sasha Greene MD Primary Care Provider: Jacoby Mars MD Consult Narrative Reason for consult: bilateral hip pain Narrative: 60yom who presents for in office injection. continues to have bilateral hip pain, so would like to proceed with injection. typically provides >50% relief for >3months at a time. cc:: CC: Sasha Greene MD Review of Systems ROS Status of ROS 10 or more systems reviewed and unremarkable except as noted in history and below [facility] Medical History Osteoarthritis ?M19.90 - Unspecified osteoarthritis, unspecified site (ICD-10) Numbness and tingling ?R20.0 - Anesthesia of skin (ICD-10) ?R20.2 - Paresthesia of skin (ICD-10) Wears dentures ?Z97.2 - Presence of dental prosthetic device (complete) (partial) (ICD-10) Obesity (BMI 35.0-39.9 without comorbidity) ?E66.9 - Obesity, unspecified (ICD-10) Current smoker ?F17.200 - Nicotine dependence, unspecified, uncomplicated (ICD-10) Breathlessness lying flat ?R06.01 - Orthopnea (ICD-10) High blood cholesterol level ?E78.00 - Pure hypercholesterolemia, unspecified (ICD-10) High blood pressure ?I10 - Essential (primary) hypertension (ICD-10) On home O2 ?Z99.81 - Dependence on supplemental oxygen (ICD-10) COPD (chronic obstructive pulmonary disease) ?J44.9 - Chronic obstructive pulmonary disease, unspecified (ICD-10) Surgical History History of surgery on arm ?Z98.890 - Other specified postprocedural states (ICD-10) History of tonsillectomy and adenoidectomy ?Z90.89 - Acquired absence of other organs (ICD-10) Social History Smoking status: Current every day smoker Meds Home Medications and Allergies Home Medications ?Medication ?Instructions ?Recorded ?Confirmed ?Type albuterol sulfate 2.5 mg/3 mL 2.5 mg inhalation Q8H 02/13/23 12/08/23 History (0.083 %) solution for nebulization fluticasone fur. 100 mcg-umeclid 1 inh inhalation Q24H 02/13/23 12/08/23 History 62.5 mcg-vilant 25 mcg inhalat.powder (Trelegy Ellipta) gabapentin 800 mg tablet 800 mg PO TID 02/13/23 12/08/23 History hydrochlorothiazide 25 mg tablet 25 mg PO QDAY 02/13/23 12/08/23 History lisinopril 10 mg tablet 10 mg PO QDAY 02/13/23 12/08/23 History meloxicam 15 mg tablet 15 mg PO QDAY 02/13/23 12/08/23 History rosuvastatin 10 mg tablet 10 mg PO DAILY 10/20/23 12/08/23 History gabapentin 800 mg tablet 800 mg PO TID #90 tabs 07/12/24 Rx meloxicam 15 mg tablet 15 mg PO DAILY #30 tabs 07/12/24 Rx gabapentin 800 mg tablet 800 mg PO TID #270 tabs 02/09/25 Rx gabapentin 800 mg tablet 800 mg PO TID #90 tabs 02/09/25 Rx meloxicam 15 mg tablet 15 mg PO DAILY #30 tabs 07/21/25 Rx Allergies Allergy/AdvReac Type Severity Reaction Status Date / Time No Known Drug Allergies Allergy Verified 12/08/23 07:15 Exam Narrative Exam Narrative: Psych-alert and oriented x 3.? Attentive and appropriate, constitutionally normal, displays normal mood and affect per situation.? There are no obvious deficits in memory, reasoning, or intellect.? Skin-no obvious rashes, bruising, erythema noted to the patient's area of pain. Extremities- extremities are warm with minimal edema and palpable pulses. Hip-tenderness to palpation is noted over the bilateral hip joint.? Pain is elicited with internal and external rotation of the hip.? Hip provocative maneuvers are positive and consistent with the patient's normal pain.? Coordination remains intact.? Gait remains antalgic. Assessment and Plan Assessment and Plan (1) Greater trochanteric bursitis of both hips: Plan 60yom who presents for in office injection. continues to have bilateral hip pain, so will proceed with injection. follow up in 3 months. procedure: bilateral greater trochanteric bursa injection medications: bupivacaine 0.25% 4cc, depomedrol 40mg I explained the details of the procedure to the patient including the risks, benefits and alternatives. We had an informed discussion and the patient verbalized understanding and signed the consent form. All questions were answered appropriately.? A time out was performed.? The skin overlying the left lateral hip was prepped with alcohol x3. A sterile syringe containing the above medication was attached to a 25 gauge, 3.5 inch needle under strict aseptic technique. The greater trochanter and point of tenderness was palpated. At this point, the needle was then advanced through the subcutaneous tissue down to os. The needle was withdrawn slightly and the contents of the syringe were gently injected without any resistance. The needle was removed and pressure was applied to the injection site to decrease the incidence of ecchymosis and hematoma formation.? A sterile bandage was applied. The same procedure was then completed on the opposite side. Post procedural instructions were given to the patient.
== END 2025-08-22 13:29 | disposition home or self-care (01) ==
LOC: PM 13:28
PROVIDERS: PCP Radiology Diagnostic Radiology; Visit Provider Anesthesiology
DX: M70.62 Trochanteric bursitis, left hip (principal); M70.61 Trochanteric bursitis, right hip
CPT/HCPCS: 20610; J0665; J1010